=== PATIENT | female | born 1980 | race African-American/Black ===

== ENCOUNTER 2016-09-16 07:55 | Emergency (ER) | payer BC, OTHER ==
[~2016-09-16] VITALS: Ht 152.4 cm; Wt 54.4 kg
--- NOTE | ~2016-09-16 | EKG ---
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
[~2016-09-16 07:55] MED LIST: NOHOMEMEDICATIONS; NORCO 5-325 TA1 EACH PO; TOBREX5 ML OPHTHALMIC; VALIUM5 MG PO
[2016-09-16] MEDS ORDERED: AMOXICILLIN 50500 MG PO (08:25)
[2016-09-16 08:26] LABS: HEMATOCRIT 35.2 % (37.0-47.0); HEMOGLOBIN 11.6 gm/dL (12.0-15.0); MCH 25.8 pg (26.0-34.0); MCV 78.4 fL (80.0-100.0); PLATELET COUNT 419 thou/uL (150-400); RBC 4.49 mil/uL (4.20-5.00); RDW 14.9 % (10.5-14.5); WBC 8.9 thou/uL (4.0-11.0)
[2016-09-16 08:31] LABS: MANUAL DIFF YES
[2016-09-16 08:51] LABS: ABSOLUTE NEUTROPHILS 2.7 thou/uL (1.4-8.2); ATYPICAL LYMPHS 2 %; METAMYELOCYTES 1 %; TOTAL CELL COUNT 100
[2016-09-16 08:52] LABS: ANISOCYTOSIS 1+; HYPOCHROMASIA 1+
[2016-09-16 09:18] LABS: ANION GAP 14 mmol/L (7-16); BUN 13 mg/dL (7-18); CALCIUM 9.6 mg/dL (8.5-10.1); CHLORIDE 103 mmol/L (98-107); CO2 19 mmol/L (21-32); CREATININE 0.7 mg/dL (0.6-1.0); GLUCOSE 86 mg/dL (74-106); POTASSIUM 3.7 mmol/L (3.5-5.1); SODIUM 136 mmol/L (136-145); TROPONIN-I < 0.04 ng/mL (<0.04-0.07)
[2016-09-16] MEDS ORDERED: ATIVAN0.5 MG PO (09:23)
[2016-09-16 10:12] VITALS: BP 116/76
== END 2016-09-16 10:14 | disposition home or self-care (01) ==
LOC: ER 07:55
PROVIDERS: Emergency Medicine
DX: J06.9 Acute upper respiratory infection, unspecified (principal); L04.0 Acute lymphadenitis of face, head and neck; F10.99 Alcohol use, unspecified with unspecified alcohol-induced disorder; Z88.6 Allergy status to analgesic agent

== ENCOUNTER 2017-05-20 07:54 | Emergency (ER) | payer BC, OTHER ==
[~2017-05-20] VITALS: Ht 152.4 cm; Wt 81.7 kg
[~2017-05-20 07:54] MED LIST changes: +AMOXICILLIN 50500 MG PO; +ATIVAN0.5 MG PO
[2017-05-20 08:58] LABS: URINE BILIRUBIN NEGATIVE (Negative); URINE BLOOD NEGATIVE (Negative); URINE CLARITY CLOUDY; URINE COLOR YELLOW; URINE GLUCOSE-RANDOM* NEGATIVE (Negative); URINE KETONES NEGATIVE (Negative); URINE LEUKOCYTES-REFLEX NEGATIVE (Negative); URINE NITRITE-REFLEX NEGATIVE (Negative); URINE PROTEIN (DIPSTICK) NEGATIVE (Negative); URINE SPECIFIC GRAVITY 1.015 (1.005-1.035); URINE UROBILINOGEN 0.2 E.U./dl (0.2-1.0)
[2017-05-20] MEDS ORDERED: VALIUM5 MG PO (09:15)
[2017-05-20] MEDS ORDERED: MOBIC15 MG PO (09:15)
[2017-05-20] MEDS ORDERED: NORCO 5-325 TA1 EACH PO (09:15)
[2017-05-20 10:17] VITALS: BP 138/70
[2017-06-04] MEDS ORDERED: VALIUM5 MG PO (08:47)
[2017-06-04] MEDS ORDERED: NORCO 10-325 T1 EACH PO (08:48)
[2017-06-04] MEDS ORDERED: ATIVAN0.5 MG PO (08:49)
[2017-06-04] MEDS ORDERED: TYLENOL EXTRA500 MG PO (08:50)
[2017-06-04] MEDS ORDERED: IBUPROFEN 200200 M1 PO (08:51)
[2017-06-04] MEDS ORDERED: BC POWDER PO (08:56)
[2017-06-04] MEDS ORDERED: AMITRIPTYLINE H25 M2 PO (10:02)
[2017-06-20] MEDS ORDERED: OXYCODONE HCL10 MG PO (13:44)
[2017-06-20] MEDS ORDERED: MEDROLDOSEPACK PO (13:44)
[2017-06-20] MEDS ORDERED: AMITRIPTYLINE H25 M2 PO (13:45)
[2017-06-25] MEDS ORDERED: NAPROSYN500 MG PO (09:54)
[2017-06-25] MEDS ORDERED: NORCO 10-325 T1 EACH PO (10:58)
[2017-06-25] MEDS ORDERED: OXYCODONE HCL10 MG PO (10:58)
[2017-06-25] MEDS ORDERED: VALIUM5 MG PO (10:58)
[2017-07-30] MEDS ORDERED: NORCO 5-325 TA1 EACH PO (09:28)
[2017-07-30] MEDS ORDERED: NORCO 10-325 T1 EACH PO ×2 (10:17→10:18)
[2017-07-30] MEDS ORDERED: AMITRIPTYLINE H25 M2 PO (10:18)
[2017-07-30] MEDS ORDERED: VALIUM5 MG PO (10:20)
[2017-07-30] MEDS ORDERED: GRALISE300 MG PO (10:32)
[2017-07-30] MEDS ORDERED: GRALISE600 MG PO (10:32)
[2017-08-27] MEDS ORDERED: VALIUM5 MG PO (08:51)
[2017-08-27] MEDS ORDERED: AMITRIPTYLINE H25 M2 PO (08:51)
[2017-08-27] MEDS ORDERED: NORCO 10-325 T1 EACH PO (08:51)
== END 2017-05-20 10:25 | disposition home or self-care (01) ==
LOC: ER 07:54
PROVIDERS: Emergency Medicine
DX: M54.5 Low back pain (principal); Z88.8 Allergy status to other drugs, medicaments and biological substances; Z77.22 Contact with and (suspected) exposure to environmental tobacco smoke (acute) (chronic)

== ENCOUNTER 2017-05-28 11:02 | Emergency (ER) | payer BC, OTHER ==
[~2017-05-28] VITALS: Ht 152.4 cm; Wt 79.4 kg
[~2017-05-28 11:02] MED LIST changes: +MOBIC15 MG PO
[2017-05-28 12:13] VITALS: BP 109/69
[2017-06-04] MEDS ORDERED: VALIUM5 MG PO (08:47)
[2017-06-04] MEDS ORDERED: NORCO 10-325 T1 EACH PO (08:48)
[2017-06-04] MEDS ORDERED: ATIVAN0.5 MG PO (08:49)
[2017-06-04] MEDS ORDERED: TYLENOL EXTRA500 MG PO (08:50)
[2017-06-04] MEDS ORDERED: IBUPROFEN 200200 M1 PO (08:51)
[2017-06-04] MEDS ORDERED: BC POWDER PO (08:56)
[2017-06-04] MEDS ORDERED: AMITRIPTYLINE H25 M2 PO (10:02)
[2017-06-20] MEDS ORDERED: MEDROLDOSEPACK PO (13:44)
[2017-06-20] MEDS ORDERED: OXYCODONE HCL10 MG PO (13:44)
[2017-06-20] MEDS ORDERED: AMITRIPTYLINE H25 M2 PO (13:45)
[2017-06-25] MEDS ORDERED: NAPROSYN500 MG PO (09:54)
[2017-06-25] MEDS ORDERED: OXYCODONE HCL10 MG PO (10:58)
[2017-06-25] MEDS ORDERED: VALIUM5 MG PO (10:58)
[2017-06-25] MEDS ORDERED: NORCO 10-325 T1 EACH PO (10:58)
[2017-07-30] MEDS ORDERED: NORCO 5-325 TA1 EACH PO (09:28)
[2017-07-30] MEDS ORDERED: NORCO 10-325 T1 EACH PO ×2 (10:17→10:18)
[2017-07-30] MEDS ORDERED: AMITRIPTYLINE H25 M2 PO (10:18)
[2017-07-30] MEDS ORDERED: VALIUM5 MG PO (10:20)
[2017-07-30] MEDS ORDERED: GRALISE300 MG PO (10:32)
[2017-07-30] MEDS ORDERED: GRALISE600 MG PO (10:32)
[2017-08-27] MEDS ORDERED: AMITRIPTYLINE H25 M2 PO (08:51)
[2017-08-27] MEDS ORDERED: VALIUM5 MG PO (08:51)
[2017-08-27] MEDS ORDERED: NORCO 10-325 T1 EACH PO (08:51)
== END 2017-05-28 12:59 | disposition left against medical advice (07) ==
LOC: ER 11:02
DX: M54.42 Lumbago with sciatica, left side (principal); R20.2 Paresthesia of skin; F10.99 Alcohol use, unspecified with unspecified alcohol-induced disorder; Z77.22 Contact with and (suspected) exposure to environmental tobacco smoke (acute) (chronic); Z88.6 Allergy status to analgesic agent

== ENCOUNTER → 2017-06-04 | Outpatient (CLI) | payer BC, OTHER ==
[~2017-06-04] VITALS: Ht 152.4 cm; Wt 77.8 kg
[~2017-06-04] MED LIST changes: +AMITRIPTYLINE H25 M2 PO; +BC POWDER PO; +IBUPROFEN 200200 M1 PO; +NORCO 10-325 T1 EACH PO; +TYLENOL EXTRA500 MG PO
--- NOTE | ~2017-06-04 | HPC ---
[facility] [place] [address] PAIN MANAGEMENT CONSULTATION Name: JOHNATHAN ANTON Room #: [facility].#: [id number] Admission: 06/04/17 Attend Phys: Nati Bettencourt MD Discharge: Date of : 82 Report #: [id number] THIS REPORT FOR: //name// CC: Anand Bettencourt DATE OF SERVICE: 06/04/2017 PRIMARY CARE PHYSICIAN: Anand Parikh, registered nurse practitioner. CHIEF COMPLAINT: Back pain down into both legs. FOLLOWUP HISTORY: This is a 37-year-old female who has been referred to the pain clinic for evaluation of back and leg pain. She has been experiencing pain over the past months, which radiates down into both legs. She has been experiencing some numbness in the posterior portion of her legs and some in the anterior distal portion of her legs. She has experienced some subjective weakness at times. Feels like her legs are about the buckle and give out. She also feels some squeezing discomfort in the area of her cast. Feels that the right side is more problematic than the left. Rates her pain as a 5/10. Without her medication, she rates pain as a 10/10. Pain is somewhat improved by lying down as well as using a heating pad. Denies any trauma. Denies any significant bowel or bladder dysfunction. She did receive a Medrol Dosepak. She did note some mild improvement in her pain condition after taking the Medrol Dosepak. Overall, pain continues to be problematic and she describes them as constant, burning, aching, stabbing and throbbing pain, which is a 9/10 on today's date. She denies any surgeries in the past. 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 ALLERGIES: TRAMADOL. CURRENT MEDICATIONS: DC powder 2-3 daily, ibuprofen 200 mg every 6 hours p.r.n. pain, Tylenol Extra Strength 500 mg tablets every 6 hours p.r.n. pain, lorazepam 0.5 mg every 8 hours p.r.n., hydrocodone 10/325 one p.o. every 4-6 hours p.r.n. pain, diazepam 5 mg b.i.d. anxiety. PAST MEDICAL HISTORY: Low back pain, asthma, emotional problems. PAST SURGICAL HISTORY: None. REVIEW OF SYSTEMS: Questionnaire in the chart 14.3 indicates generally good health, weight changes, fatigue, weakness, wears glasses, nausea, vomiting, constipation, frequent recurring headaches, lightheadedness, dizziness, nervousness. LABORATORY DATA: MRI of the lumbar spine dated 05/28/2017 revealed #1 at the [address] [address] PAIN MANAGEMENT CONSULTATION Name: DESEANJOHNATHAN Elver Room #: [facility].#: [id number] Admission: 06/04/17 Attend Phys: Nati Bettencourt MD Discharge: Date of : 82 Report #: [id number] L4-L5 disk space there is a mild generalized disk bulge. Degenerative changes are seen involving the facet joints bilaterally. There is mild ligamentum flavum hypertrophy bilaterally. These findings when combined to result in mild central spinal canal stenosis. No neural foraminal stenosis is seen, #2 at the L5-S1 disk space there is moderate generalized disk bulge, superimposed on this disk bulge is a right paracentral focal disk protrusion. This measured 4 mm in AP diameter. Degenerative changes are seen involving the facet joints bilaterally. There is moderate ligamentum flavum hypertrophy. These findings when combined result in vgoi-mz-yrfeprmc right greater than the left central spinal canal stenosis. No neural foraminal stenosis is seen. The patient appears to have transitional vertebral anatomy. PAIN CLINIC ASSESSMENT: 1. The patient is not being treated for osteoarthritis or rheumatoid arthritis. 2. Height 5 feet 0 inches, weight 171 pounds, BMI is 33.5. 3. Vital signs: Blood pressure 129/71, pulse is 88, respiratory rate 16, room air saturation is 100. 4. Pain intensity 9. 5. Fall risk. The patient has not fallen in the last 3 months. 6. The patient is not on a blood thinner. 7. History of hypertension. The patient is not being treated for hypertension. 8. Opioid therapy. The patient is not on opioid therapy on a consistent basis. 9. Risk assessment tool. 10. Functional assessment tool 59-70 shows problems with activities of daily living. 11. Recreational drug use. Denies. 12. Tobacco. Current daily smoker, smoked for 20 years, one-third pack per day at this juncture. 13. Alcoholic beverages. Drinks only on special occasions. PHYSICAL EXAMINATION: GENERAL: The patient is a well-developed, well-nourished black female. She appears her stated age. ORIENTATION: The patient is alert and oriented x 3. AFFECT: The patient's affect is appropriate. HEAD, EYES, EARS, NOSE, AND THROAT: Normocephalic, atraumatic. Extraocular eye muscles intact. Mucous membranes are moist. Hearing within normal limits. NECK: Without JVD or adenopathy. CHEST: Clear to auscultation. HEART: Regular rate. ABDOMEN: Somewhat protuberant. EXTREMITIES: Upper extremities. Muscle strength is judged to be 5/5 in the major muscle groups of the upper extremity with symmetry. Sensory exam is within normal limits for the upper extremity. The patient's back/musculoskeletal indicates no significant kyphosis, scoliosis or lordosis. The patient does have some pain and discomfort in the area of the lower portion [facility] [address] [place] [address] PAIN MANAGEMENT CONSULTATION Name: JOHNATHAN ANTON Room #: [facility].#: [id number] Admission: 06/04/17 Attend Phys: Nati Bettencourt MD Discharge: Date of : 82 Report #: [id number] of her legs in the L5-S1 distribution on the back side as well as some pain and discomfort in the L4-L5 distribution in the anterior portion of her legs. IMPRESSION: Lumbar radiculopathy, L5-S1 distribution of the legs with MRI findings consistent with spinal stenosis, rated as pqtd-uo-puulimjy involving the L5-S1 dermatomal distribution. RECOMMENDATIONS: We discussed treatment options with the patient. Risks and benefits of an epidural steroid injection were again discussed. The patient's MRI was reviewed. Anatomical model was used to indicate the area of probable pathology. The possibility of improvement/pathophysiology of lumbar disk disease and spinal stenosis was discussed. The patient appears to understand. She will follow up in the future, at which time she will undergo an epidural steroid injection to help decrease the pain and discomfort which she is experiencing, which is radiating down into the posterior portion and anterior portion of her legs. Has numbness and tingling in both legs and in her feet as a result of this. She will return to the pain clinic after precertification by her insurance company at which time she will then undergo an epidural steroid injection to help decrease the pain and discomfort which she is experiencing. By: [id number] Nati Bettencourt MD /CECILIA
[2017-06-04 08:49] VITALS: BP 129/71
== END ==
LOC: PAIN 06:38
DX: M54.16 Radiculopathy, lumbar region (principal)

== ENCOUNTER → 2017-06-20 | Outpatient (CLI) | payer BC, OTHER ==
[~2017-06-20] VITALS: Ht 152.4 cm; Wt 77.6 kg
[~2017-06-20] MED LIST changes: +MEDROLDOSEPACK PO; +NAPROSYN500 MG PO; +OXYCODONE HCL10 MG PO
--- NOTE | ~2017-06-20 | HPC ---
[facility] [place] [address] [address] PAIN MANAGEMENT CONSULTATION Name: JOHNATHAN ANTON Room #: REG [facility].#: [id number] Admission: 06/20/17 Attend Phys: Nati Bettencourt MD Discharge: Date of : 82 Report #: [id number] THIS REPORT FOR: //name// CC: SHANE Osuna DATE OF SERVICE: 06/20/2017 PRIMARY CARE PHYSICIAN: Anand Parikh NP. CHIEF COMPLAINT: "I would like to get the injection." FOLLOWUP HISTORY: The patient is a 37-year-old female who has been seen in the pain clinic because of back and leg pain. She is experiencing pain and discomfort, which radiates down into the posterior portion of her right leg. She has had an MRI, which showed that she does have some pathology in the L4-L5/L5-S1 distribution. She noticed some numbness and tingling in her legs. She states that her leg continues to get significantly numb on the right side. Does have some problems with muscle strength. The leg has been weak. She has not fallen, but does require use of her hand at times to help push down on the pedals in her car because of the weakness associated with this. States that she has continued to do exercises to help strengthen this. Does continue to have pain and discomfort, which is still quite problematic. She is quite despondent. Feels that the pain continues to rule her life. She is unable to engage in things, which she would normally be able to, has difficulty getting her son off to school, has difficulty getting a ride and transportation as well as help from other family members given that she is having pain and discomfort and unable to fully care for herself and her son. ALLERGIES: TRAMADOL. MEDICATIONS: DC powders 2-3 per day, ibuprofen 200 mg 1 q. 6 hours p.r.n., Tylenol Extra Strength 500 mg q. 6 hours p.r.n., lorazepam 0.5 mg q.8 hours, hydrocodone 10/325 one p.o. q.4-6 h. p.r.n., diazepam 5 mg b.i.d. for anxiety. PAIN CLINIC ASSESSMENT: 1. The patient is not being treated for osteoarthritis nor rheumatoid arthritis. Height 5 feet 0 inches, weight 171 pounds, BMI is 33. 2. Vital signs: Blood pressure 127/79, pulse 96, respiratory rate 14, room air saturation 99%. Pain intensity is rated as a 7/10. 3. Fall risk. The patient has not fallen in the last 3 months. She has had some intermittent dizziness and feels like she is going to fall. Notes that her leg sometimes buckle and has almost fallen as a result of that. Notes some weakness in her leg and sometimes uses her arm and hands to help move [place] [address] PAIN MANAGEMENT CONSULTATION Name: JOHNATHAN ANTON Room #: REG [facility] Meenu#: [id number] Admission: 06/20/17 Attend Phys: Nati Bettencourt MD Discharge: Date of : 82 Report #: [id number] 4. The patient is not on a blood thinner. 5. History of hypertension. The patient has not been treated for hypertension. 6. Opioid therapy greater than 6 weeks. The patient is not on opioid therapy greater than 6 weeks. 7. Risk assessment tool. 8. Functional assessment tool. 9. Recreational drug use. 10. Tobacco. Every day smoker. Has smoked for the last 20 years. She does smoke about one-third pack of cigarettes per day. 11. Alcoholic beverages. The patient drinks only on special occasions. PHYSICAL EXAMINATION: GENERAL: The patient is a well-developed, well-nourished black female. She appears her stated age. She is oriented x 3. She is alert. Affect appears appropriate, but she is somewhat depressed. She cries during the interview secondary to the chronicity of her pain and limitation of her ability to engage in activities of daily living. HEENT: Normocephalic, atraumatic. Extraocular eye muscles intact. Mucous membranes are moist. Hearing is within normal limits. NECK: Without JVD or adenopathy. Good range of motion. CHEST: Clear to auscultation. HEART: Regular rate. ABDOMEN: Nontender, somewhat protuberant. EXTREMITIES: Upper extremities are judged to be 5/5 for the major muscle groups with symmetry. Sensation is within normal limits. MUSCULOSKELETAL: Without significant kyphosis, scoliosis or lordosis. The patient does have some pain and discomfort in the lower back area with pain radiating down into her legs with pain in the area of the L5-S1 distribution and some pain in the L5-S1 areas as well. MRI shows the patient has a transitional vertebral anatomy at L5/T. There are changes of degenerative disk disease involving the lower lumbar spine. These findings result in mild central canal stenosis at L4-L5 and npeh-gn-afigezpl right greater than left central spinal canal stenosis at L5/T. RECOMMENDATIONS: We discussed treatment options with the patient. The patient has returned to the pain clinic. Her insurance company has declined her injection at this juncture. They feel that she should undergo physical therapy. The patient is somewhat distraught that physical therapy was not already implemented. Feels that she is having pain and discomfort and suffering needlessly secondary to her insurance company's inability to areli her an injection at this juncture. I feel that she has taken all the medications that she can take to help with the pain. Continues to do stretching exercises. Finds that her leg continues to go numb. She has not fallen, but does note some weakness. Has to use her hand to help apply the brakes/accelerator while driving. The patient continues to have some numbness and tingling down into both legs and feet as a result of this. [facility] [address] [place] [address] PAIN MANAGEMENT CONSULTATION Name: JOHNATHAN ANTON Room #: REG [facility].#: [id number] Admission: 06/20/17 Attend Phys: Nati Bettencourt MD Discharge: Date of : 82 Report #: [id number] We have given the patient a script for physical therapy. Given that, she is having significant problems with pain, loss of muscle function and weakness in the affected area, we would recommend that she be granted an option to undergo an epidural steroid injection at this juncture. We will provide the patient with oxycodone for pain control. She will take 10 mg 1 p.o. t.i.d. as needed. She has been given a Medrol Dosepak to take in the interim. She did find that that was somewhat helpful for early in her course. We have given her samples of gabapentin (Gralise). She will take this as prescribed over the next 2 weeks, hopefully that in conjunction with amitriptyline, which has been helpful with sleep at night. We will continue to be efficacious and help the patient have a more controlled pain experience. So if her insurance company allows, we will proceed with a lumbar epidural steroid injection. We have called the insurance company and they will phone us hopefully in the near future and areli her the ability to undergo an epidural steroid injections after we talked with a [id number]-[id number] conference. <ELECTRONICALLY SIGNED> By: Nati Bettencourt MD 06/25/17 0851 1550 [id number] Nati Bettencourt MD /CECILIA
[2017-06-20 12:45] VITALS: BP 127/79
== END ==
LOC: PAIN 06:53
DX: M47.27 Other spondylosis with radiculopathy, lumbosacral region (principal); Z88.6 Allergy status to analgesic agent

== ENCOUNTER → 2017-06-25 | Outpatient (CLI) | payer BC, OTHER ==
[~2017-06-25] VITALS: Ht 152.4 cm; Wt 77.9 kg
--- NOTE | ~2017-06-25 | HPC ---
[facility] [address] [place] [address] PAIN MANAGEMENT CONSULTATION Name: JOHNATHAN ANTON Room #: REG [facility].#: [id number] Admission: 06/25/17 Attend Phys: Nati Bettencourt MD Discharge: Date of : 82 Report #: [id number] THIS REPORT FOR: //name// CC: SHANE Osuna DATE OF SERVICE: 06/25/2017 FOLLOWUP COMPLAINT: "Pain in the low back area with pain down into the back of my legs." FOLLOWUP HISTORY: The patient is a 37-year-old female, who has been seen in the pain clinic because of lumbar radiculopathy. As you recall, she has significant pain, which has been quite problematic. It radiates from her low back and into the posterior portion of her right leg. She has been experiencing numbness and tingling. She states that pain is problematic and there is numbness down in the leg, particularly on the right side. This in the posterior portion of the leg. She is unable to engage in activities of daily living. She is having difficulty at work. She is having difficulty sleeping. She rates the pain as a 7/10. Denies any real change in bowel or bladder habits. She is having difficulty driving. Notes some weakness in her leg, which makes it more difficult to control her vehicle. 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 ALLERGIES: TRAMADOL. MEDICATIONS: BC powders 2-3 per day, ibuprofen 200 mg 1 every 6 hours p.r.n., Tylenol Extra Strength 500 mg every 6 hours, lorazepam 0.5 mg every 8 hours, hydrocodone 10/325 one p.o. every 4-6 hours p.r.n., diazepam 5 mg 1 b.i.d. for anxiety. PAIN CLINIC ASSESSMENT: 1. The patient is not being treated for osteoarthritis or rheumatoid arthritis. 2. Her height 5 feet 0 inches, weight 171 pounds, BMI is 32. 3. VITAL SIGNS: Blood pressure 127/79, pulse 96, respiratory rate 16, room air saturation is 98%. Pain intensity rated as 7/10. 4. Fall risk. The patient has not fallen in the last 3 months. She does have some weakness in her leg. Notes that she sometimes has to push/lift the right leg secondary to pain and weakness. 5. The patient is not on a blood thinner. 6. History of hypertension. The patient has not been treated for hypertension. 7. Opioid therapy, greater than 6 weeks. The patient has not been treated for opioid therapy. 8. Risk assessment tool. 9. Functional assessment total. [address] [address] PAIN MANAGEMENT CONSULTATION Name: JOHNATHAN ANTON Room #: REG [facility] Meenu#: [id number] Admission: 06/25/17 Attend Phys: Nati Bettencourt MD Discharge: Date of : 82 Report #: [id number] 10. Recreational drug use: The patient denies use of recreational drugs. 11. Tobacco: The patient has smoked cigarettes and smokes daily for the last 20 years. Smokes about 1/3 of a pack of cigarettes per day. 12. Alcoholic beverages. Denies use of alcoholic beverages except on special occasions. PHYSICAL EXAMINATION: GENERAL: The patient is a well-developed, well-nourished black female. She appears her stated age. She is alert and oriented x 3. Her affect is appropriate. She is somewhat depressed. She is concerned about the chronicity of her pain. Speech is fluent. HEENT: Normocephalic, atraumatic. Extraocular eye muscles intact. Sclerae is nonicteric. Mucous membranes are moist. Hearing is within normal limits. NECK: Good movement without JVD or adenopathy. CHEST: Clear to auscultation. HEART: Regular rate, normal S1, S2. ABDOMEN: Nontender, somewhat protuberant. EXTREMITIES: Upper extremity is judged to be 5/5 for the major muscle groups with symmetry and without sensory changes. MUSCULOSKELETAL: Without significant kyphosis, scoliosis or lordosis. The patient has some pain and discomfort in the lower portion of her back with pain radiating down into both legs in the L5-S1 distribution, more prominent on the right side today. The patient has a transitional vertebral anatomy at L5/T. MRI shows transitional vertebral anatomy at L5/T. There are changes of degenerative disk disease involving the lower lumbar spine. These findings result in mild central canal stenosis at L4-L5 and nvfq-oq-zdzouzmx right greater than left central spinal canal stenosis at L5/T. RECOMMENDATIONS: We discussed treatment options with the patient. Risks and benefits of an epidural steroid injection were again reviewed. Possible complications were discussed. They could include but are not limited to infection, increased muscle soreness, headache, bleeding, worsening of pain, nerve damage. The patient has returned today and would like to proceed with the epidural steroid injection to help control her pain and decrease her suffering. PROCEDURE NOTE: The patient was taken to the procedure area. She was assisted in getting on the fluoroscopy table. Her back was sterilely prepped with a Betadine solution. A 0.25% bupivacaine was infiltrated to this area. The area had been identified using fluoroscopy using anterior-posterior as well as lateral approach. A 0.25% bupivacaine was infiltrated. A 17-gauge Tuohy with loss of resistance technique was then advanced into the epidural space. There was no CSF, heme or paresthesia. Total of 80 mg Depo-Medrol, 40 mg triamcinolone and 2 mL of 0.25% bupivacaine was injected. The patient tolerated the procedure well. There were no complications. A Band-Aid was placed. There [facility] [address] [place] [address] PAIN MANAGEMENT CONSULTATION Name: JOHNATHAN ANTON Room #: REG [facility]#: [id number] Admission: 06/25/17 Attend Phys: Nati Bettencourt MD Discharge: Date of : 82 Report #: [id number] was no bleeding. She was then assisted to the recovery room area. She remained there for an appropriate amount of time. She will follow up in the future as needed. We would like to thank you for letting us participate in her care. We hope she continues to improve. Pain decreased from ____. Total of 14 seconds fluoroscopy time was used. By: [id number] Nati Bettencourt MD /nt
[2017-06-25 09:54] VITALS: BP 126/74
== END | disposition home or self-care (01) ==
LOC: PAIN 06:48
DX: M54.16 Radiculopathy, lumbar region (principal); G89.29 Other chronic pain; F17.210 Nicotine dependence, cigarettes, uncomplicated; Z79.891 Long term (current) use of opiate analgesic; Z88.8 Allergy status to other drugs, medicaments and biological substances

== ENCOUNTER → 2017-08-27 | Outpatient (CLI) | payer BC, OTHER ==
[~2017-08-27] VITALS: Ht 152.4 cm; Wt 77.9 kg
[~2017-08-27] MED LIST changes: +GRALISE300 MG PO; +GRALISE600 MG PO
--- NOTE | ~2017-08-27 | HPC ---
[facility] [place] [address] PAIN MANAGEMENT CONSULTATION Name: JOHNATHAN ANTON [id number] Admission: 08/27/17 Attend Phys: Nati Bettencourt MD Discharge: Date of : 82 Report #: [id number] THIS REPORT FOR: //name// CC: Anand Bettencourt DATE OF SERVICE: 08/27/2017 FOLLOWUP COMPLAINT: "I have had EMG testing. I have nerve damage in my legs. I have lost some sensation in my bladder." FOLLOWUP HISTORY: The patient is a 37-year-old female, who has been followed in the pain clinic, because of lumbar radiculopathy. She has undergone epidural steroid injection in the past and gleaned benefits from that. She continues to have pain and discomfort, which is quite problematic. She continues to go to work. She works 4 days per week. She finds work quite problematic. She has been sent home on a couple of occasions secondary to the employer noting that she is in such pain and discomfort. The patient states that she has lost some bladder continence, because of some decreasing feelings sensation in her bladder. Continues to have pain and discomfort, which radiates down into her leg. Has the sensation of a thong in between her great toe and the index toe. Notes cramping in her calf. Notes pain radiating down from the buttocks down into the posterior portion of her thigh. Has had this in the L5-S1 distribution. She has had numbness in the right foot and tingling in her left foot. Notes that pain is exacerbated with standing, walking too long, sitting for a prolonged period of time. Notes that sometimes the pain improves when she lies flat on the bed. The patient states that she is trying to contact her surgeon. The patient states that she has been doing exercises, which she is seen on the Internet regarding her back and pain. She has not been able to go to physical therapy. States that her insurance declined that option for her. The patient feels that the pain continues to rule her life. Unable to engage in activities of daily living secondary to this pain and discomfort. Still has difficulty interacting with her son. Has been having difficulty maintaining her livelihood secondary to this pain and discomfort. Feels somewhat depressed because of this situation. ALLERGIES: TRAMADOL. CURRENT MEDICATIONS: 1. DC powders 2-3 per day. 2. Ibuprofen 200 mg 1 every 4-6 hours p.r.n. pain. 3. Extra strength Tylenol 500 mg p.r.n. 4. Lorazepam 0.5 mg every 8 [place] [address] PAIN MANAGEMENT CONSULTATION Name: JOHNATHAN ANTON Room #: REG [facility].#: [id number] Admission: 08/27/17 Attend Phys: Nati Bettencourt MD Discharge: Date of : 81 Report #: [id number] 5. Hydrocodone 10/325 one p.o. every 4-6 hours p.r.n. 6. Diazepam 5 mg b.i.d. for anxiety and muscle spasms. PAIN CLINIC ASSESSMENT: 1. The patient does have some osteoarthritic changes in the low back area causing pain and discomfort in the L5-S1 distribution. 2. Height 5 feet 0 inches, weight 171 pounds, BMI is 36.6. 3. Vital Signs: Blood pressure 110/72, pulse 98, respiratory rate 16, room air saturation 100. 4. Pain intensity 10/10. 5. Fall risk. The patient has not fallen in the last 3 months, but does note some weakening in her legs secondary to pain and discomfort. 6. Blood thinner. The patient is not on a blood thinning medication. 7. Hypertension. The patient is not being treated for hypertension. 8. Opioid therapy greater than 6 weeks. The patient is receiving opioid medications through the pain clinic. 9. Risk assessment tool, opioid risk low. 10. Functional assessment 59 on a 70 shows a significant impact on activities of daily living secondary to the pain. 11. Recreational drug use. The patient denies use of recreational drugs. 12. Current smoker. 13. Alcohol: The patient denies use of alcoholic beverages. PHYSICAL EXAMINATION: GENERAL: The patient is a well-developed black female. She is alert and oriented x 3. She is appropriate. Her affect is somewhat depressed. She states that her pain is problematic and overshadowing her entire life. HEENT: Normocephalic, atraumatic. Extraocular eye muscles intact. Mucous membranes are moist. Sclerae nonicteric. Hearing is within normal limits. NECK: Without JVD or adenopathy. Good range of motion. CHEST: Clear to auscultation without rales or rhonchi. HEART: Regular rate. S1, S2. ABDOMEN: Nontender, somewhat protuberant. EXTREMITIES: Upper extremities judged to be 5/5 for the major muscle groups with symmetry and normal sensation without change. MUSCULOSKELETAL: Without significant kyphosis, scoliosis or lordosis. Lower extremity, the patient has pain and discomfort in the lower portion of her back with pain radiating down in the L5-S1 distribution of her back. Notes bilateral leg pain in the thighs and feet. Notes some entirety of her left calf feeling like it have a charley horse. Right foot with numbness, left foot with tingling, great toe and the index toe on the right foot feels as though, the patient is wearing a thong because of the pressure and discomfort in this area, numbness, tingling, tightness, spasms has noted and had an accident where she could not feel her bladder. IMPRESSION: [facility] [address] [place] [address] PAIN MANAGEMENT CONSULTATION Name: DESEANJOHNATHAN Elver Room #: REG [facility].#: [id number] Admission: 08/27/17 Attend Phys: Nati Bettencourt MD Discharge: Date of : 81 Report #: [id number] 1. Lumbar radiculopathy, L5-S1 distribution. 2. Some loss of bladder sensation with micturition. RECOMMENDATIONS: We discussed treatment options with the patient. Risks and benefits of an epidural steroid injection were again discussed. The patient states that she has had EMG findings. States that the EMG findings noted that there was some damage in her left as well as in the right nerves radiating down into her L5-S1 area. The patient states that her surgeon, Dr. Sethi, who is contemplating surgery has asked that she consider another epidural steroid injection prior to the surgery. She would like to proceed. We have a call in to her insurance company. They have requested a [id number]. We would certainly like to proceed with this procedure. The patient continues to do stretching exercises at home. Continues to use nonsteroidal anti-inflammatory medication such as Naprosyn, meloxicam and DC powders. The patient has an MRI, has noted some improvement in the pain after the epidural steroid injection. The pain is more intermittent instead of constant and steady which precluded her from going to work. We would like to thank you for letting us participate in her care. We hope she continues to improve. The patient has been given a script for Elavil 25 mg at bedtime, Neurontin 10 mg 1 p.o. every 4-6 hours p.r.n. as well as Valium for muscle spasms. We would like to thank you for letting us participate in her care. We hope she continues to improve. <ELECTRONICALLY SIGNED> By: Nati Bettencourt MD 08/29/17 0833 1621 Nati Bettencourt MD /nt
[2017-08-27 08:56] VITALS: BP 110/72
== END ==
LOC: PAIN 07:08
DX: M54.16 Radiculopathy, lumbar region (principal); R30.9 Painful micturition, unspecified

== ENCOUNTER → 2018-05-27 | Outpatient (CLI) | payer BC ==
[~2018-05-27] VITALS: Ht 152.4 cm; Wt 80.0 kg
[~2018-05-27] MED LIST changes: +EXCEDRIN CAPLE1 EACH PO; +NEURONTIN 300M300 M2 PO
--- NOTE | ~2018-05-27 | HPC ---
[facility] [address] [address] PAIN MANAGEMENT CONSULTATION Name: JOHNATHAN ANTON [id number] Admission: 05/27/18 ������������������ Attend Phys: Nati Bettencourt MD Discharge: ������������������ Date of : 81 Report #: [id number] THIS REPORT FOR: //name// CC: Anand Bettencourt DATE OF SERVICE: 05/27/2018 COMPLAINT: Low back pain with pain radiating down to the left foot with throbbing and some weakness. HISTORY: The patient is a 38-year-old female who has been followed in the pain clinic. She had been experiencing pain with radiation down into her legs. She also began to experience bowel and bladder dysfunction. She by her neurosurgeon. We felt that the patient's bowel and bladder incontinence was secondary to pressure on the nerves in the lower portion of her back. She underwent back surgery. She has noted an improvement since that surgery. She has noted return of bowel and bladder function. Has less pain and discomfort on the right side. Continues to have pain, which radiates down into the left knee area and down into her calf and foot. Imaging did not show signs of blood clot. Overall, things have improved since her spine surgery. She continues to have some pain and discomfort. She continues to recuperate. Notes that the pain in her left lower extremity comes in waves. After prolonged standing with activity such as cleaning as cooking and other activities. She notes increased pain in her left leg. She has fallen on 2 occasions. Fell twice on the ice. Fell one time when her left leg buckled when she was walking down stairs some steps. Left leg oftentimes feels as though it is "sleep." ALLERGIES: TRAMADOL. CURRENT MEDICATIONS: Excedrin q. 6 hours p.r.n., Valium 5 mg b.i.d. p.r.n. anxiety, hydrocodone 5/325 one p.o. q.4-6 hours p.r.n. pain and Naprosyn 500 mg b.i.d., Tylenol Extra Strength 500 mg p.r.n. PAIN CLINIC ASSESSMENT/PQRS: 1. The patient does have some osteoarthritic changes in the lower portion of her back and is status post surgery. The patient is not being treated for rheumatoid arthritis. 2. Height 5 feet 0 inches, weight 176 pounds, BMI is 34. 3. Vital Signs: Blood pressure 133/85, pulse 92, respiratory rate 18, room air saturations 100%. Pain intensity 7/10. 3. Fall risk. The patient did fallen secondary to some weakness in her left lower extremity also fell two times on ice. 4. Blood thinner. The patient is not on a blood thinning medication. 5. Hypertension. The patient has not been treated for hypertension. [address] [address] PAIN MANAGEMENT CONSULTATION Name: JOHNATHAN ANTON Room #: REG [facility]#: [id number] Admission: 05/27/18 ������������������ Attend Phys: Nati Bettencourt MD Discharge: ������������������ Date of : 81 Report #: [id number] 6. Opioid medications greater than 6 weeks. The patient has received some medications from her orthopedic surgery, Dr. Sethi. 6. Functional assessment tool 59/70. 7. Recreational drug use. The patient denies use of recreational drugs. 8. Alcohol: The patient denies frequent use of alcoholic beverages. 9. Tobacco. The patient has smoked tobacco in the past, 1 pack a day every 3-4 days, over the past 20 years. PHYSICAL EXAMINATION: GENERAL: The patient is a well-developed, well-nourished black female, appears her stated age. She is alert and oriented x 3. Her affect is appropriate. Speech is fluent. HEENT: Normocephalic, atraumatic. Extraocular eye muscles intact. NECK: Without JVD or adenopathy. Good range of motion. CHEST: Clear to auscultation without rhonchi or rales. HEART: Regular rate. S1, S2. ABDOMEN: Nontender. Bowel sounds present. EXTREMITIES: Upper extremity muscle strength is judged to be 5/5 for the major muscle groups with symmetry without sensory changes. MUSCULOSKELETAL: Without significant kyphosis, scoliosis or lordosis. The patient has pain and discomfort in lower portion of her back with pain that is radiating down into the left leg, most problematic below the level of her knee. Notes some weakness in this area. Has some discomfort primarily on the left lower extremity. Notes some throbbing. Notes increased pain with prolonged standing. She feels as though the left leg has fallen asleep. IMPRESSION: 1. History of lumbar radiculopathy, L5-S1, status post surgery with improvement on the right side and improvement in bowel and bladder function. 2. L5-S1 minimally invasive microdiskectomy performed on 08/08/2017. RECOMMENDATIONS: We discussed treatment options with the patient. Continues to have pain and discomfort, which is problematic, found that Elavil was helpful. use of amitriptyline 25-50 mg 1 p.o. at bedtime. Oftentimes, this medication can be helpful, but when patient is having pain, which is associated with the nerves. Also, could be helpful with patients and improving their sleep pattern. The patient will continue with [place] 5 mg 1 p.o. b.i.d. The patient has been given a script for 5 tablets daily. I think it is important that the patient have use of this medication at this juncture. She feels that it increased her ability to engage in activities of daily living. This is a small amount of medication. She has used higher dosages in the past. I think the lower dose at this juncture will prove beneficial. We have discussed the possible complications of opioid use, which includes the possibility of addiction as well as less efficacy secondary to tolerance. The patient also will continue with Valium 5 mg p.o. b.i.d. She takes this medication help with anxiety as well as with muscle spasms. She will continue with gabapentin [address] [address] PAIN MANAGEMENT CONSULTATION Name: JOHNATHAN ANTON Room #: REG [facility].#: [id number] Admission: 05/27/18 ������������������ Attend Phys: Nati Bettencourt MD Discharge: ������������������ Date of : 81 Report #: [id number] p.o. t.i.d. The patient will use Meloxicam 15 mg 1 p.o. daily. She will monitor her GI. If she notes problems with gastric irritation she will stop taking the Meloxicam. A script for the medications have been rewritten. The patient's insurance has declined use of hydrocodone. I think at this juncture from a medical standpoint, this is a reasonable medication for the patient to be taken at this juncture. We would like to thank you for letting us participate in her care. We hope she continues to improve. ��������������������������������������������� ���������������������������������������� By: ��������������������������������������������� [id number] Nati Bettencourt MD /PMT
[2018-05-27 09:22] VITALS: BP 133/85
--- NOTE | 2018-05-27 09:26 | NUR ---
Pain Clinic Assessment: 1. History of Osteoarthritis: History of Rheumatoid Arthritis: 2. Height: 5 ft. 0 in. 152.4 cm. Weight: 176.4 lb. oz. 80.015 kg. Patient's BMI: 34.5 3. Vital Signs: BP: 133/85 Pulse: 92 Resp: 18 Temp: 02 Sat: 100 ECG Mon: 4. Pain Intensity: 7 5. Fall Risk: Dizziness: N Needs help standing or walking: N Fallen in the last 3 months: Y Fall risk comments: 6. Patient on Blood Thinner: None 7. History of Hypertension: N 8. Opioid Therapy greater than 6 weeks: N Opiate Contract Signed: 9. Risk Assessment Tool Provided: Opioid Risk Tool 10. Functional Assessment Tool: 59/70 11. Recreational Drug Use: Never Drug Type: Tobacco Use: Current Every Day Smoker Tobacco Type: Amount or Packs/day: How Many Years: Alcohol Use: No Frequency: Quant:
== END ==
LOC: PAIN 07:04
DX: M54.16 Radiculopathy, lumbar region (principal); M51.06 Intervertebral disc disorders with myelopathy, lumbar region; Z79.899 Other long term (current) drug therapy

== ENCOUNTER → 2018-06-26 | Outpatient (CLI) | payer BC ==
[~2018-06-26] VITALS: Ht 152.4 cm; Wt 82.6 kg
[~2018-06-26] MED LIST changes: +AMITRIPTYLINE H50 M2 PO; +HYDROCODON-ACE1 EAC7 PO; +NEURONTIN 300300 M1 PO
[2018-06-26 09:12] VITALS: BP 121/84
--- NOTE | 2018-06-26 09:28 | NUR ---
Pain Clinic Assessment: 1. History of Osteoarthritis: Not Applicable History of Rheumatoid Arthritis: Not Applicable 2. Height: 5 ft. 0 in. 152.4 cm. Weight: 182.0 lb. oz. 82.555 kg. Patient's BMI: 35.5 3. Vital Signs: BP: 121/84 Pulse: 93 Resp: 14 Temp: 02 Sat: 100 ECG Mon: 4. Pain Intensity: 6 5. Fall Risk: Dizziness: N Needs help standing or walking: N Fallen in the last 3 months: N Fall risk comments: 6. Patient on Blood Thinner: None 7. History of Hypertension: N 8. Opioid Therapy greater than 6 weeks: N Opiate Contract Signed: 9. Risk Assessment Tool Provided: Opioid Risk Tool 10. Functional Assessment Tool: 59/70 11. Recreational Drug Use: Never Drug Type: Tobacco Use: Current Every Day Smoker Tobacco Type: Cigarettes Amount or Packs/day: 5-6 CIGS DAY How Many Years: Alcohol Use: No Frequency: Quant:
--- NOTE | 2018-06-29 07:22 | HPC ---
[facility] [address] [address] PAIN MANAGEMENT CONSULTATION Name: JOHNATHAN ANTON [facility] [id number] Admission: 06/26/18 ������������������ Attend Phys: Macrina Wong Discharge: ������������������ Date of : 82 Report #: [id number] THIS REPORT FOR: //name// CC: Macrina Wong Anand Kati DATE OF SERVICE: 06/26/2018 CHIEF COMPLAINT: Low back pain with pain radiating down her left leg to her left foot. HISTORY OF PRESENT ILLNESS: This is a very pleasant 38-year-old who returns to the pain clinic today, very thankful for the medication regimen that she is on by Dr. Bettencourt. She tells me that her pain is slowly getting better. She does not concentrate on her pain all the time. She is enjoying her work again and able to cook meals. She is just very thankful that she found Dr. Bettencourt in this pain clinic. It has been 8 months since her surgery and she knows it still is going to take time to recover, but she is very thankful. Her left leg still bothers her at times, but she does not consume all of her thoughts as it once did. She tells me she cooked a full meal for her 7-year-old the other day. She said it brought tears to her eyes that she was able to do that. She would like refills of her current medications. She states she is sleeping well and her pain score today is a 6/10, worse when she is walking or standing too long, better when she is lying down and using heat. She denies any constipation. She takes some syou-rho-fccxjch stool softeners and that helps regulated. She is not overmedicated and denies daytime sleepiness. ALLERGIES: TRAMADOL. CURRENT MEDICATIONS: Hydrocodone 5/325 two tablets b.i.d. p.r.n., diazepam 5 mg b.i.d. for spasms, amitriptyline 50 mg at bedtime, gabapentin 300 mg 3 times a day and meloxicam 15 mg daily. PQRS: 1. She has some arthritic changes in the lower back. She is not being treated for rheumatoid arthritis. 2. Height is 5 feet, weight is 182 and BMI is 35. 3. VITAL SIGNS: Blood pressure 121/84, pulse is 93, respirations 14 and oxygen sat is 100. 4. Pain score 6/10. 5. Fall risk. Denies dizziness. Does not help walking or standing, has not fallen in the last 3 months. 6. Blood thinner. She denies. She does not have a history of hypertension. 7. Opiate therapy is greater than 6 weeks[address] We need to place a drug screen on her chart for her to sign. 8. Recreational drug use, she denies. She currently smokes 5-[address] [address] PAIN MANAGEMENT CONSULTATION Name: JOHNATHAN ANTON [id number] Admission: 06/26/18 ������������������ Attend Phys: Macrina Wong Discharge: ������������������ Date of : 82 Report #: [id number] day. She does not drink alcohol. Her functional assessment is 59/70 and her opioid risk tool is low. We did check the prescription monitoring system. The patient is filling appropriately from her medications from Dr. Bettencourt. She is due for her medications today. We will check a drug screen on her at her next visit. PHYSICAL EXAMINATION: GENERAL: This is a well-developed, well-nourished black female who appears her stated age, placing her current pain score at 6 today. She is alert and orientated and her affect is appropriate. HEENT: Normocephalic and atraumatic. Extraocular eye muscles are intact. NECK: Without JVD or adenopathy. EXTREMITIES: Upper extremity strength judged to be 5/5 for major muscle groups and symmetry without sensory changes. MUSCULOSKELETAL: Without significant kyphosis, scoliosis or lordosis. She does walk with a slightly antalgic gait. Complains of pain in her left thigh area that does occasionally radiate below the knee. Her lower extremity strength judged to be 4/5 in her left leg, 5/5 in her right leg. She does note some throbbing and numbness in her leg. IMPRESSION: 1. History of lumbar radiculopathy, L5-S1, status post surgery. 2. L5-S1 minimally invasive microdiscectomy. We reviewed the fact that opiate medications are being used to provide analgesia adequate to support activities of daily living, not attempting to achieve a specific pain score on the 0-10 Visual Analog Scale. The current opiate medications are providing sufficient analgesia to allow the patient to participate in activities of daily living. The patient is not exhibiting any aberrant behavior suggestive of drug diversion. The patient is not having any adverse reactions to medications. The patient is not suffering from daytime somnolence or mental acuity changes. The patient is managing opiate-induced constipation with appropriate rxoo-pic-lvfdevt agents and dietary considerations. The patient was counseled on concern for caution with operating a motor vehicle while using opiate medications. A physical exam was performed and the patient's functional status was evaluated. All patients with back pain were advised against the bed rest greater than 4 days and were advised to return to normal activities. Pain score assessment was noted and the treatment plan was reviewed with the patient. All current medications, both prescribed and OTC were reviewed and reconciled on the electronic medical record. Tobacco screening was accomplished and smoking cessation was advised when indicated. BMI was noted and diet/exercise modification was recommended for all patients following outside normal parameters. [facility] [address] [place] [address] PAIN MANAGEMENT CONSULTATION Name: JOHNATHAN ANTON Room #: REG [facility] Ana.#: [id number] Admission: 06/26/18 ������������������ Attend Phys: Macrina Wong Discharge: ������������������ Date of : 82 Report #: [id number] I reviewed with the patient today their responsibilities to safeguard prescription medications, reviewed their responsibility to utilize medications only as prescribed by the physician. They are to seek and receive pain medications only from 1 physician group ( [facility]). They are to use 1 pharmacy and keep the clinic informed if they change pharmacies. Their responsibilities include making followup visits in a timely fashion and to avoid abrupt discontinuation of medication usage. Their responsibilities further include bringing their medications (bottles from the pharmacy with residual pills) to the visit for possible confirmation of pill counts and the patient understands it is their responsibility to submit to random drug screens to ensure both that the medications prescribed are present, and that no other controlled substances are present. All prescriptions provided today were generated electronically. PLAN: 1. We discussed treatment options with the patient today. The patient tells me she is doing well on her current regimen from Dr. Bettencourt and would like refills of her medications. 2. Script was given today for [place] 5 mg 2 tablets b.i.d., #60 for today and 4-week release. This places her morphine milliequivalent at maximum of 20 morphine milliequivalents per day. Some days, she is not needing the full amount of her medications. Second medication is diazepam 5 mg b.i.d. #60 with one additional refill. Next medicine, gabapentin 300 mg t.i.d., #90 with one additional refill. Final medicine, amitriptyline 50 mg tablets 1 at bedtime, #30 with one additional refill. This is a change from her 25 mg, she was titrating up on that medication and find that 50 mg is very helpful for her that she uses for sleep and she tells me that her sleep has improved significantly, which she thinks helps aid her in her activities of daily living and makes her more productive at home. 3. The patient will be seen in 2 months' time. The patient was seen with Dr. Bettencourt who also collaborated care. ��������������������������������������������� <ELECTRONICALLY SIGNED> ���������������������������������������� By: Macrina oWng ��������������������������������������������� 06/29/18 0722 [id number] Macrina Wong /kenzie
== END ==
LOC: PAIN 06:44
DX: M54.17 Radiculopathy, lumbosacral region (principal); Z98.1 Arthrodesis status; Z79.899 Other long term (current) drug therapy

== ENCOUNTER → 2018-08-21 | Outpatient (CLI) | payer BC ==
[~2018-08-21] VITALS: Ht 152.4 cm; Wt 84.4 kg
[~2018-08-21] MED LIST changes: +AMITRIPTYLINE H75 M1 PO
--- NOTE | ~2018-08-21 | HPC ---
[facility] [place] [address] PAIN MANAGEMENT CONSULTATION Name: JOHNATHAN ANTON Room #: REG [facility] Ana.#: [id number] Admission: 08/21/18 ������������������ Attend Phys: Nati Bettencourt MD Discharge: ������������������ Date of : 82 Report #: [id number] THIS REPORT FOR: //name// CC: Anand Bettencourt DATE OF SERVICE: 08/21/2018 CHIEF COMPLAINT: Chronic pain in the left calf. HISTORY: The patient is a 38-year-old female who has been seen in the pain clinic because of chronic pain. She has returned today because of continued pain and discomfort. It involves her left lower calf. Notes that she has some cramping sensation. She has used the Valium and finds that that is one of the medications that she says been helpful with the cramping sensation. She has tried a number of other muscle relaxants and has not got the same benefit. She would like to "get on top of the pain", but she has not been able to. It is still quite problematic. She rates it as a 9/10. The numbness, tingling and spasms are quite problematic. Standing for too long, walking for too long or prolonged sitting can exacerbate her discomfort. She has found that lying down using heat as well as a hot baths can sometimes decrease the pain. She has returned to the pain clinic for evaluation of her pain and treatment. ALLERGIES: TRAMADOL. CURRENT MEDICATIONS: Hydrocodone 5/325 one p.o. b.i.d., diazepam 5 mg b.i.d. for spasms, amitriptyline 50 mg at bedtime, gabapentin 300 mg t.i.d. and meloxicam 15 mg daily. ASSESSMENT/PQRS: 1. The patient has some arthritic change in the lower portion of her back. She is not being treated for rheumatoid arthritis. 2. Height 5 feet 0 inches, weight 186 pounds, BMI is 36.3. 3. VITAL SIGNS: Blood pressure 145/96, pulse 102, respiratory rate 16, room air saturation 98%. 4. Pain intensity 11/24. 5. Fall history: The patient has not fallen in the last 3 months. 6. Blood thinner. The patient is not on a blood thinning medication. 7. Hypertension. The patient is not being treated for hypertension. 8. Opioids greater than 6 weeks. The patient is receiving medications from one source, the pain clinic. 9. Risk assessment tool, low for opioid risk. 10. Functional assessment tool 59/70. 11. Recreational drug use. The patient denied. 12. Tobacco: The patient does smoke cigarettes. She is down to 6 cigarettes. Has smoked for 20 years and is in process of trying to quit. [address] [address] PAIN MANAGEMENT CONSULTATION Name: DESEANJOHNATHAN Elver [facility] [id number] Admission: 08/21/18 ������������������ Attend Phys: Nati Bettencourt MD Discharge: ������������������ Date of : 82 Report #: [id number] 13. Alcohol: The patient denies frequent use of alcoholic beverages. PHYSICAL EXAMINATION: GENERAL: The patient is well-developed, well-nourished black female, appears her stated age. She is alert and oriented x 3. Her affect is appropriate. Speech is fluent. HEENT: Normocephalic, atraumatic. Extraocular eye muscles intact. Sclerae nonicteric. Mucous membranes are moist. NECK: Without adenopathy or JVD. HEART: Regular rate. S1, S2. LUNGS: Clear to auscultation. ABDOMEN: Nontender. Bowel sounds present. EXTREMITIES: Upper extremity muscle strength is judged to be 5/5 for the major muscle groups in the upper extremity. The patient has a well-healed scar in the mid portion of her low back area. MUSCULOSKELETAL: The patient has pain and discomfort that is radiating down into her leg. The L5-S1 area near the calf is the most problematic area. Soft pressure and squeezing in this area does cause the patient pull back and complained of pain and discomfort. States that she has been seen by Dr. Estefania Sethi. She was evaluated for the possibility of a blood clot behind her knee that was negative. The patient has been referred to the pain clinic for continued pain followup. IMPRESSION: 1. History of lumbar radiculopathy status post surgery at L5-S1. 2. L5-S1 minimally invasive microdiskectomy was performed. 3. Chronic pain in spite of surgery. RECOMMENDATIONS: 1. We discussed treatment options with the patient. At this juncture, I think we will continue with her medications. She finds that the Valium medication is helpful with the muscle spasms. She has tried other medications in the past with no significant improvement. I think also a trial of a Medrol Dosepak at this juncture would be beneficial. A script for this has been written. The patient will also continue with the gabapentin 300 mg 1 p.o. t.i.d. She will continue with her meloxicam 15 mg daily. The patient also will have the Elavil increased from 50 mg at night to 75. She is having no problems with sedation. 2. We will also increase the Valium from 5 mg b.i.d. to 5 mg t.i.d. The patient will also continue with Kerrick 5/325 one p.o. t.i.d. Hopefully, the patient will move past this stumbling block and continued to improve. We would like to thank you for letting us participate in her care. We hope she continues to improve. ��������������������������������������������� ���������������������������������������� By: ��������������������������������������������� [id number] Nati Bettencourt MD /nt
[2018-08-21 09:51] VITALS: BP 145/96
--- NOTE | 2018-08-21 09:52 | NUR ---
Pain Clinic Assessment: 1. History of Osteoarthritis: Not Applicable History of Rheumatoid Arthritis: Not Applicable 2. Height: 5 ft. 0 in. 152.4 cm. Weight: 186.0 lb. oz. 84.369 kg. Patient's BMI: 36.3 3. Vital Signs: BP: 145/96 Pulse: 102 Resp: 16 Temp: 02 Sat: 98 ECG Mon: 4. Pain Intensity: 9 5. Fall Risk: Dizziness: N Needs help standing or walking: N Fallen in the last 3 months: N Fall risk comments: 6. Patient on Blood Thinner: None 7. History of Hypertension: N 8. Opioid Therapy greater than 6 weeks: Y Opiate Contract Signed: 08/21/18 9. Risk Assessment Tool Provided: Opioid Risk Tool 10. Functional Assessment Tool: 59/70 11. Recreational Drug Use: Never Drug Type: Tobacco Use: Current Every Day Smoker Tobacco Type: Cigarettes Amount or Packs/day: 4 CIGS How Many Years: 20 Alcohol Use: No Frequency: Quant:
== END ==
LOC: PAIN 06:47
DX: M54.17 Radiculopathy, lumbosacral region (principal); G89.29 Other chronic pain; F17.210 Nicotine dependence, cigarettes, uncomplicated; Z79.899 Other long term (current) drug therapy; Z79.891 Long term (current) use of opiate analgesic

== ENCOUNTER → 2018-10-21 | Outpatient (CLI) | payer BC ==
[~2018-10-21] VITALS: Ht 152.4 cm; Wt 83.5 kg
[2018-10-21 09:56] VITALS: BP 111/73
--- NOTE | 2018-10-21 10:12 | NUR ---
Pain Clinic Assessment: 1. History of Osteoarthritis: Not Applicable History of Rheumatoid Arthritis: Not Applicable 2. Height: 5 ft. 0 in. 152.4 cm. Weight: 184.0 lb. oz. 83.462 kg. Patient's BMI: 35.9 3. Vital Signs: BP: 111/73 Pulse: 95 Resp: 16 Temp: 02 Sat: 100 ECG Mon: 4. Pain Intensity: 10 5. Fall Risk: Dizziness: N Needs help standing or walking: N Fallen in the last 3 months: N Fall risk comments: 6. Patient on Blood Thinner: None 7. History of Hypertension: N 8. Opioid Therapy greater than 6 weeks: Y Opiate Contract Signed: 08/21/18 9. Risk Assessment Tool Provided: Opioid Risk Tool 10. Functional Assessment Tool: 59/70 11. Recreational Drug Use: Never Drug Type: Tobacco Use: Current Every Day Smoker Tobacco Type: Cigarettes Amount or Packs/day: 4 CIGS/DAY How Many Years: Alcohol Use: No Frequency: Quant:
--- NOTE | 2018-10-22 14:13 | HPC ---
[facility] [address] [address] [place] [address] PAIN MANAGEMENT CONSULTATION Name: DESEANJOHNATHAN Elver [id number] Admission: 10/21/18 Attend Phys: Macrina Wogn Discharge: Date of : 82 Report #: [id number] THIS REPORT FOR: //name// CC: Macrina Wong Anand Kati DATE OF SERVICE: 10/21/2018 CHIEF COMPLAINT: Chronic pain in her left calf. HISTORY OF PRESENT ILLNESS: This is a 38-year-old female who returns to the pain clinic today for refill of her medications for her ongoing left calf pain. She is very tearful today. She feels like she is not getting any better. She is telling me that she just wants her old life back before her back problems and her left calf pain. She informs me she is able to work as her [employer]EL[employer] job, care for her house and her child, but if she tries to do any additional exercise, then her calf hurts quite significantly rating up to a 10, though at times she is well controlled with her medications at a 2/10. Medications are helpful as well as lying down and using heat to her left calf. She denies any problems with constipation or overmedicated feeling. She is just depressed that she is not getting better since her surgery. ALLERGIES: TRAMADOL. CURRENT LIST OF MEDICATIONS: Amitriptyline 75 mg at bedtime, gabapentin 300 mg 3 times a day, hydrocodone 5/325 three times a day, meloxicam 15 mg daily. PQRS: 1. The patient has arthritic changes in the lower portion of her back. She is not being treated for rheumatoid arthritis. 2. Height is 5 feet, weight is 184, BMI is 35. 3. VITAL SIGNS: 111/73, pulse is 95, respirations 16, oxygen sat is 100. 4. Pain score is 10/10. 5. Denies dizziness. Does not need help walking or standing, has not fallen in the last 3 months. 6. The patient is not on any blood thinners or medicine for hypertension. 7. Opiate therapy is greater than 6 weeks; therefore, an opioid signed contract is on the chart. Her risk assessment tool is low. Functional assessment is 59/70. 8. Recreational drug use, she denies. She is a current smoker of 4 cigarettes a day, and she does not drink alcohol. We did check the prescription monitoring system. The patient is filling appropriately for her medications. We will check a random drug screen on her in the next visit. She does safeguard [place] [address] PAIN MANAGEMENT CONSULTATION Name: JOHNATHAN ANTON Room #: REG [facility] Corrigan#: [id number] Admission: 10/21/18 Attend Phys: Macrina Wong Discharge: Date of : 82 Report #: [id number] PHYSICAL EXAMINATION: GENERAL: This is a well-developed, well-nourished black female who appears her stated age, slightly depressed today, tearful at times. She is alert and orientated. Her speech is fluent. HEENT: Normocephalic, atraumatic. Extraocular eye muscles are intact. Mucous membranes are moist. NECK: Without adenopathy or JVD. EXTREMITIES: Upper extremity strength judged to be 5/5 in all major muscle groups. MUSCULOSKELETAL: The patient complains of pain that is in her left calf, pressure squeezing area is especially increased with walking. Does have pain that is located in her lower back as well. IMPRESSION: 1. History of lumbar radiculopathy, status post surgery at L5-S1. 2. L5-S1 minimally invasive diskectomy. 3. Chronic pain. 4. Management of opioids under terms of written opioid agreement. We reviewed the fact that opiate medications are being used to provide analgesia adequate to support activities of daily living, not attempting to achieve a specific pain score on the 0-10 Visual Analog Scale. The current opiate medications are providing sufficient analgesia to allow the patient to participate in activities of daily living. The patient is not exhibiting any aberrant behavior suggestive of drug diversion. The patient is not having any adverse reactions to medications. The patient is not suffering from daytime somnolence or mental acuity changes. The patient is managing opiate-induced constipation with appropriate onyj-vyd-jrdwgds agents and dietary considerations. The patient was counseled on concern for caution with operating a motor vehicle while using opiate medications. A physical exam was performed and the patient's functional status was evaluated. All patients with back pain were advised against the bed rest greater than 4 days and were advised to return to normal activities. Pain score assessment was noted and the treatment plan was reviewed with the patient. All current medications, both prescribed and OTC were reviewed and reconciled on the electronic medical record. Tobacco screening was accomplished and smoking cessation was advised when indicated. BMI was noted and diet/exercise modification was recommended for all patients following outside normal parameters. I reviewed with the patient today their responsibilities to safeguard prescription medications, reviewed their responsibility to utilize medications only as prescribed by the physician. They are to seek and receive pain medications only from 1 physician group ([facility]). They are to use 1 pharmacy and keep the clinic informed if they change pharmacies. Their [facility] [address] [place] [address] PAIN MANAGEMENT CONSULTATION Name: JOHNATHAN ANTON Room #: REG [facility]#: [id number] Admission: 10/21/18 Attend Phys: Macrina Mcnamarakrzysztof Discharge: Date of : 82 Report #: [id number] responsibilities include making followup visits in a timely fashion and to avoid abrupt discontinuation of medication usage. Their responsibilities further include bringing their medications (bottles from the pharmacy with residual pills) to the visit for possible confirmation of pill counts and the patient understands it is their responsibility to submit to random drug screens to ensure both that the medications prescribed are present, and that no other controlled substances are present. All prescriptions provided today were generated electronically. PLAN: 1. We discussed treatment options with the patient today. The patient is depressed and tearful that she is not getting better and continues to have left calf pain, especially with increased activity. I spent a significant amount of time encouraging the patient trying to encourage her that she is living a very active life, being able to work, care for her house, care for her children on the current pain regimen. It is our hope that her pain in her calf will continue to decrease since she has had surgery, but at least she is able to tolerate her pains with the medication we are giving. The patient does verbalize understanding of that. She just would like her old life back and able to wear high heels and be more active. Again, we reemphasized that at times she does have a pain score of 2/10 with the current regimen she is on. 2. We discussed increasing her gabapentin slightly to see if that would help some of the neuropathic pain that she is experiencing and cramping in her left calf. Script given today for gabapentin 300 mg q.i.d., #120. The patient will experiment taking it 1 in the morning or 1 mid-day whatever is beneficial for her. 3. Scripts also given for meloxicam 15 mg #30 with 1 additional refill, amitriptyline 75 mg, #30, with 1 additional refill. That increase was very beneficial at her last visit from 50 to 75. She is able to sleep better. 4. Hydrocodone 5/325, #90, for today and 4-week release and diazepam #90 with 1 additional refill. The patient does take those for spasms and cramping in her left calf. 5. The patient will return in 2 months for a followup visit. The patient is seen in collaboration with Dr. Сергей Bettencourt. <ELECTRONICALLY SIGNED> By: Macrina Wong 10/22/18 1413 [id number] Macrina Wong /nt
== END ==
LOC: PAIN 06:51
DX: M79.662 Pain in left lower leg (principal); G89.29 Other chronic pain; M54.16 Radiculopathy, lumbar region; Z79.899 Other long term (current) drug therapy; Z79.891 Long term (current) use of opiate analgesic; Z88.8 Allergy status to other drugs, medicaments and biological substances

== ENCOUNTER → 2018-12-18 | Outpatient (CLI) | payer BC ==
[~2018-12-18] VITALS: Ht 152.4 cm; Wt 86.9 kg
[~2018-12-18] MED LIST changes: +CITRACAL + D31 EACH PO; +IRON325 PO; +SENNA8.6 MG PO
[2018-12-18 09:32] VITALS: BP 109/65
--- NOTE | 2018-12-18 09:40 | NUR ---
Pain Clinic Assessment: 1. History of Osteoarthritis: Not Applicable History of Rheumatoid Arthritis: Not Applicable 2. Height: 5 ft. 0 in. 152.4 cm. Weight: 191.6 lb. oz. 86.909 kg. Patient's BMI: 37.4 3. Vital Signs: BP: 109/65 Pulse: 95 Resp: 16 Temp: 02 Sat: 100 ECG Mon: 4. Pain Intensity: 6-NOW, 2-ON GOOD DAYS 5. Fall Risk: Dizziness: N Needs help standing or walking: N Fallen in the last 3 months: N Fall risk comments: 6. Patient on Blood Thinner: None 7. History of Hypertension: N 8. Opioid Therapy greater than 6 weeks: Y Opiate Contract Signed: 08/21/18 9. Risk Assessment Tool Provided: LOW 10. Functional Assessment Tool: / 11. Recreational Drug Use: Never Drug Type: Tobacco Use: Current Every Day Smoker Tobacco Type: Cigarettes Amount or Packs/day: 4 How Many Years: Alcohol Use: No Frequency: Quant:
--- NOTE | 2018-12-25 08:26 | HPC ---
[facility] [address] [place] [address] PAIN MANAGEMENT CONSULTATION Name: JOHNATHAN ANTON Room #: REG [facility] Meenu#: [id number] Admission: 12/18/18 Attend Phys: Nati Bettencourt MD Discharge: Date of : 82 Report #: [id number] THIS REPORT FOR: //name// CC: Anand Bettencourt DATE OF SERVICE: 12/18/2018 PRIMARY CARE PHYSICIAN: Dr. Anand Parikh. CHIEF COMPLAINT: Here for medication renewal, things are going okay, but my iron is low and my vitamin D is low. HISTORY: The patient is a 38-year-old female who has been followed in the pain clinic. As you recall, she has had chronic pain in her left calf. Continues to have pain despite having undergone surgery. She describes it as emanating from the lower portion of her back down to left calf with some left foot pain. She feels that things in left foot may be improving somewhat. Denies any new falls or injuries since we saw her last. She sometimes feel that there is a spasm in her leg and she gets a lightning bolt type discomfort. Rates her pain today as a 6 now and may decrease to 2 on good days. Notes the pain is exacerbated by standing too long, walking for too long, prolonged sitting. Notes that use of her medication as well as lying down and heat, hot baths can be beneficial. She has returned today with a hope of renewing her medications. She feels that these medications enable her to continue working and stay gainfully employed with the least amount of discomfort. ALLERGIES: TRAMADOL. CURRENT MEDICATIONS: Hydrocodone 5/325 one p.o. b.i.d., diazepam 5 mg b.i.d., amitriptyline 50 mg at bedtime, gabapentin 300 mg t.i.d., meloxicam 15 mg daily. PAIN CLINIC ASSESSMENT/PQRS: 1. The patient has some arthritic changes in the lower portion of her back. She is not being treated for rheumatoid arthritis. 2. Height 5 feet 0 inches, weight 191 pounds, BMI is 37.4. 3. Vital signs: Blood pressure 109/65, pulse 95, respiratory rate 16, room air saturation is 100%. 4. Pain intensity 6 now and 2 on good days. 5. Fall risk. The patient has not fallen in the last 3 months. 6. Blood thinner. The patient is not on a blood thinning medication. 7. Hypertension. The patient is not being treated for hypertension. 8. Opioids greater than 6 weeks. The patient received medication from one source, the pain clinic. 9. Risk assessment tool, low for opioids. 10. Functional assessment tool 59/70[place] [address] PAIN MANAGEMENT CONSULTATION Name: DESEANJOHNATHAN L Room #: REG [facility] Meenu#: [id number] Admission: 12/18/18 Attend Phys: Nati Bettencourt MD Discharge: Date of : 82 Report #: [id number] 11. Recreational drug use. The patient denies. 12. Tobacco: The patient denies use of tobacco. 13. Alcohol: The patient denies frequent use of alcoholic beverages. PHYSICAL EXAMINATION: GENERAL: The patient is a well-developed, well-nourished black female, appears her stated age. She is alert and oriented x 3. Her affect is appropriate. Speech is fluent. HEENT: Normocephalic, atraumatic. Extraocular eye muscles intact. Sclerae nonicteric. Mucous membranes are moist. NECK: Without adenopathy or JVD. HEART: Regular rate. S1, S2. LUNGS: Clear to auscultation without rhonchi. ABDOMEN: Nontender. Bowel sounds present. MUSCULOSKELETAL: Upper extremity muscle strength judged to be 5/5 for the major muscle groups in the upper extremity. The patient has some well-healed scar in the lower portion of her back. The patient with pain that radiates down into her left leg into the calf area in the L5-S1 dermatomal distribution. IMPRESSION: 1. History of lumbar radiculopathy, status post surgery at the L4-L5 area. 2. L5-S1 minimally invasive microdiskectomy. 3. History of chronic pain despite surgery. 4. Low iron. The patient is on 325 iron. 5. Constipation. 6. Vitamin D deficiency. RECOMMENDATIONS: We discussed treatment options with the patient. We will continue with her current medications. Feels that her medications are working well. She does not have any concerns with that. She is aware that opioid medications can be problematic in certain patients. She has taken her medications as prescribed. She does not have any problems with dependency. She is not showing signs of addiction. She is taking medications as prescribed. She has returned today with hopes of renewing her medications. We will rewrite her medications for hydrocodone 5 mg 1 p.o. t.i.d. and Valium for muscle spasms 5 mg 1 p.o. t.i.d., total of 90 tablets, amitriptyline 75 mg 1 at bedtime, gabapentin/Neurontin 300 mg 1 p.o. q.i.d., and meloxicam 15 mg 1 p.o. daily. The patient will call us if she has any concerns. We would like to thank you for letting us participate in her care. We hope she continues to improve. <ELECTRONICALLY SIGNED> By: Nati Bettencourt MD 12/25/18 0826 [id number] [id number] Nati Bettencourt MD /[facility]
== END ==
LOC: PAIN 06:52
DX: M54.16 Radiculopathy, lumbar region (principal); K59.00 Constipation, unspecified; E55.9 Vitamin D deficiency, unspecified

== ENCOUNTER → 2019-02-17 | Outpatient (CLI) | payer BC ==
[~2019-02-17] VITALS: Ht 152.4 cm; Wt 90.3 kg
[~2019-02-17] MED LIST changes: +MELOXICAM15 MG PO; +NEURONTIN300 MG PO
[2019-02-17 09:46] VITALS: BP 124/88
--- NOTE | 2019-02-17 09:56 | NUR ---
Pain Clinic Assessment: 1. History of Osteoarthritis: Not Applicable History of Rheumatoid Arthritis: Not Applicable 2. Height: 5 ft. 0 in. 152.4 cm. Weight: 199.0 lb. oz. 90.266 kg. Patient's BMI: 38.9 3. Vital Signs: BP: 124/88 Pulse: 91 Resp: 16 Temp: 02 Sat: 100 ECG Mon: 4. Pain Intensity: 2 5. Fall Risk: Dizziness: N Needs help standing or walking: N Fallen in the last 3 months: N Fall risk comments: 6. Patient on Blood Thinner: None 7. History of Hypertension: N 8. Opioid Therapy greater than 6 weeks: Y Opiate Contract Signed: 08/21/18 9. Risk Assessment Tool Provided: LOW-1 10. Functional Assessment Tool: 11. Recreational Drug Use: Never Drug Type: Tobacco Use: Current Every Day Smoker Tobacco Type: Cigarettes Amount or Packs/day: 4 CIGS How Many Years: 20 Alcohol Use: No Frequency: Quant:
--- NOTE | 2019-02-18 08:46 | HPC ---
[facility] [address] [place] [address] PAIN MANAGEMENT CONSULTATION Name: JOHNATHAN ANTON [id number] Admission: 02/17/19 Attend Phys: Macrina Wong Discharge: Date of : 82 Report #: [id number] THIS REPORT FOR: //name// CC: Macrina Bettencourt MD DATE OF SERVICE: 02/17/2019 CHIEF COMPLAINT: Chronic pain in her left calf. HISTORY OF PRESENT ILLNESS: This is a very pleasant 38-year-old female who returns to the pain clinic today for refill of her medications that she uses to help treat her ongoing low back pain and left calf pain. She reports a pain score of 2/10. States she is doing quite well with her current regimen. Occasionally, she will have lightning bolt pain in her calf and spasms, especially if she is walking too long or sitting too long. She feels that the medications are beneficial as well as lying down and using heat. She denies any problems with constipation. She has changed her diet and feels that has been helpful. She does report that she is having some problems sleeping at night on the days that she is off. 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 ALLERGIES: TRAMADOL. CURRENT LIST OF MEDICATIONS: Meloxicam 15 mg daily, hydrocodone 5/325 t.i.d. p.r.n., gabapentin 300 mg 4 times a day, Valium, amitriptyline 75 mg at bedtime, Senokot, calcium, iron, Tylenol Extra Strength. PATIENT'S PQRS: 1. She has some arthritic changes in her lower portion of her spine. Denies any rheumatoid arthritis. 2. Height is 5 feet, weight is 199, BMI is 38. 3. Vital Signs: Blood pressure 124/88, pulse is 91, respirations 16, oxygen sat is 100. 4. Pain score is 2/10. 5. Denies dizziness, does not need help walking, has not fallen in the last 3 months. 6. The patient is not on any blood thinners or medicines for hypertension. 7. Opiate therapy is greater than 6 weeks; therefore, an opioid signed contract is on the chart. Risk assessment tool is low. Functional assessment is . 8. Recreational drug use, she denies. She is a current smoker of 4 cigarettes a day, trying to decrease this and quit. Does not drink alcohol. According to the prescription monitoring system, the patient is filling [address] [address] PAIN MANAGEMENT CONSULTATION Name: JOHNATHAN ANTON Room #: REG [facility] Meenu#: [id number] Admission: 02/17/19 Attend Phys: Macrina Wong Discharge: Date of : 82 Report #: [id number] appropriately for her medications with no aberrant fills. She is due to fill her medications today. There is a recent drug screen on the chart that is appropriate for her medications. PHYSICAL EXAMINATION: GENERAL: This is alert and orientated 38-year-old female who appears her stated age, placing her current pain score at 2/10 today. She is quite upbeat and her affect is appropriate. HEENT: Normocephalic, atraumatic. Extraocular eye muscles are intact. Mucous membranes are moist. NECK: Without adenopathy or JVD. ABDOMEN: Nontender. Bowel sounds are present. MUSCULOSKELETAL: The patient has a well-healed scar in the lower portion of her lumbar spine. Pain radiates from her lower back into her left calf following the L5-S1 dermatomal distribution. Her lower extremity muscle groups appear symmetrical in strength and tone at 5/5. The patient walks with a normal gait. IMPRESSION: 1. History of lumbar radiculopathy post-surgery at the L4-L5 region. 2. L5-S1 minimally invasive microdiscectomy. 3. History of chronic pain. 4. Habituation to tobacco. PLAN: 1. We discussed treatment options with the patient today. The patient finds her medications very beneficial allowing her good analgesic and able to be active with her child and at work. She feels that she is not having any adverse reactions to these medications. We will refill her hydrocodone 5/325, #90 today and 4-week release. 2. We will refill her diazepam 5 mg #90 with one additional refill. 3. We did discuss her amitriptyline and gabapentin. She feels that she is not sleeping as well during her off days. I encouraged her to alternate how she takes her gabapentin on her off days. I encouraged her to take 2 in the morning and 2 at night along with her amitriptyline on those days. The patient verbalizes understanding. We will try this. We did refill her gabapentin at 120 pills with one additional refill and amitriptyline 75 mg, #30 with one additional refill. 4. We also refilled meloxicam 15 mg, #30 with 1 refill. The patient has denied any GI upset or dyspepsia from this medication. 5. We did talk about smoking cessation and increasing her weight due to trying to quit smoking. I encouraged her to be as active as possible, try to watch her caloric intake as well. The patient reports that she is smoking about 4 cigarettes a day. I encouraged her to pick a date in the future and that will be her stop date. She verbalizes understanding. She knows she needs to set this goal for herself as well. [facility] [address] [place] [address] PAIN MANAGEMENT CONSULTATION Name: JOHNATHAN ANTON Room #: [facility] Meenu#: [id number] Admission: 02/17/19 Attend Phys: Macrina Wong Discharge: Date of : 82 Report #: [id number] The patient seen in collaboration with Dr. Сергей Bettencourt. <ELECTRONICALLY SIGNED> By: Macrina Wong 02/18/19 [id number] Macrina Wong /nt
== END ==
LOC: PAIN 06:58
DX: M54.16 Radiculopathy, lumbar region (principal); G89.29 Other chronic pain

== ENCOUNTER → 2019-04-21 | Outpatient (CLI) | payer BC ==
[~2019-04-21] VITALS: Ht 152.4 cm; Wt 88.9 kg
[~2019-04-21] MED LIST changes: +ALKA-SELTZER P1 EA10 PO; +AMITRIPTYLINE H75 M2 PO; +PROBIOTIC1 EAC7 PO
[2019-04-21 09:58] VITALS: BP 118/74
--- NOTE | 2019-04-21 10:13 | NUR ---
Pain Clinic Assessment: 1. History of Osteoarthritis: Not Applicable History of Rheumatoid Arthritis: Not Applicable 2. Height: 5 ft. 0 in. 152.4 cm. Weight: 196.0 lb. oz. 88.905 kg. Patient's BMI: 38.3 3. Vital Signs: BP: 118/74 Pulse: 100 Resp: 16 Temp: 02 Sat: 100 ECG Mon: 4. Pain Intensity: 4 5. Fall Risk: Dizziness: Y Needs help standing or walking: N Fallen in the last 3 months: N Fall risk comments: 6. Patient on Blood Thinner: None 7. History of Hypertension: N 8. Opioid Therapy greater than 6 weeks: Y Opiate Contract Signed: 08/21/18 9. Risk Assessment Tool Provided: LOW-1 10. Functional Assessment Tool: 11. Recreational Drug Use: Never Drug Type: Tobacco Use: Current Every Day Smoker Tobacco Type: Cigarettes Amount or Packs/day: 4 cigs/day How Many Years: 20 Alcohol Use: No Frequency: Quant:
--- NOTE | 2019-04-22 09:25 | HPC ---
[facility] [address] [address] PAIN MANAGEMENT CONSULTATION Name: JOHNATHAN ANTON Room #: REG [facility].#: [id number] Admission: 04/21/19 Attend Phys: Macrina Wong Discharge: Date of : 82 Report #: [id number] THIS REPORT FOR: cc: Anand Parikh Andrea RNP Hocker,Macrina NG ~ THIS REPORT FOR: //name// DATE OF SERVICE: 04/21/2019 CHIEF COMPLAINT: Low back pain, chronic left calf pain. HISTORY OF PRESENT ILLNESS: This is a pleasant 39-year-old female who returns to the pain clinic today for refill of her medications. She is reporting a pain score 4/10, which she said is slightly higher than her average due to the weather changes. She feels that the cold weather has increased her pain as well as when she is walking for a long period of time or standing for long periods of time. This pain is located in her lower back and left calf and left knee. It is a constant spasm and weakness, but she feels that her medications have been helpful as well as lying down and using heat at the end of her workday. She denies any problems with constipation or daytime sleepiness. She does report that she is sleeping slightly better with her changes in making her gabapentin 2 tablets before bedtime. Today, she would like refills of her medications. ALLERGIES: TRAMADOL. CURRENT LIST OF MEDICATIONS: Probiotic hydrocodone 5/325 t.i.d., Valium 5 mg t.i.d., gabapentin 300 mg q.i.d., amitriptyline 75 mg at bedtime, meloxicam 15 mg daily, Senokot, calcium, iron and extra strength Tylenol. PQRS: 1. She has arthritic changes in her lumbar spine. Denies any rheumatoid arthritis. 2. Height is 5 feet, weight is 196, BMI is 38. 3. Vital signs 118/74, pulse is 100, respirations are 16, oxygen sat is 100. 4. Pain score is 4/10. 5. Denies dizziness, does not need help walking or standing, has not fallen in the last 3 months. 6. The patient is not on any blood thinners and does not take medicine for hypertension. Opioid therapy is greater than 6 weeks; therefore, an opioid signed contract is on the chart. Risk assessment tool is low. Functional assessment is . 7. Recreational drug use, she denies. She currently smokes 4 cigarettes a day and does not drink alcohol. [address] [address] PAIN MANAGEMENT CONSULTATION Name: JOHNATHAN ANTON Room #: REG [facility]#: [id number] Admission: 04/21/19 Attend Phys: Macrina Wong Discharge: Date of : 82 Report #: [id number] According to the prescription monitoring system, the patient is filling appropriately due to fill her medications today. She has an appropriate drug screen on the chart. According to the CDC guidelines, her morphine mEq per day is 15 MME. PHYSICAL EXAMINATION: GENERAL: This is alert and orientated 39-year-old female who appears her stated age, placing her current pain score 4/10 today. HEENT: Normocephalic, atraumatic. Extraocular eye muscles are intact. Mucous membranes are moist. NECK: Without adenopathy or JVD. MUSCULOSKELETAL: She has a well-healed scar in her lumbar spine. Pain radiates from her lumbar back into her left leg following the L5-S1 dermatomal distribution. Lower extremity strength judged to be 5/5 in all major muscle groups. IMPRESSION: 1. History of lumbar radiculopathy, post-laminectomy syndrome at the L4-L5 distribution. 2. L5 minimally invasive microdiskectomy. 3. History of chronic pain. 4. Habituation to tobacco. 5. Complex medical management. We reviewed the fact that opiate medications are being used to provide analgesia adequate to support activities of daily living, not attempting to achieve a specific pain score on the 0-10 Visual Analog Scale. The current opiate medications are providing sufficient analgesia to allow the patient to participate in activities of daily living. The patient is not exhibiting any aberrant behavior suggestive of drug diversion. The patient is not having any adverse reactions to medications. The patient is not suffering from daytime somnolence or mental acuity changes. The patient is managing opiate-induced constipation with appropriate brtb-nal-sugjqwe agents and dietary considerations. The patient was counseled on concern for caution with operating a motor vehicle while using opiate medications. PLAN: 1. We discussed treatment options with the patient today. The patient feels that she is sleeping slightly better with rotating her gabapentin schedule 2 in the morning and 2 at night as well as her amitriptyline at her nighttime. We will refill these medications today for gabapentin 30 mg, #120 with one additional refill, amitriptyline 75 mg, #30 with one additional refill, meloxicam 15 mg, #30 with one additional refill. 2. We will have Dr. Сергей Bettencourt who is collaborating care today and did see the patient as well, write the hydrocodone 5/325 t.i.d., #90, for today and [address] [address] PAIN MANAGEMENT CONSULTATION Name: JOHNATHAN ANTON Room #: REG [facility] Meenu#: [id number] Admission: 04/21/19 Attend Phys: Macrina Wong Discharge: Date of : 82 Report #: [id number] 4-week release and diazepam 5 mg #90 with one additional refill. 3. The patient will return in 2 months for an appointment. <ELECTRONICALLY SIGNED> By: Macrina Wong 04/22/19 0925 [id number] 13 Macrina Wong /kenzie
== END ==
LOC: PAIN 06:44
DX: M96.1 Postlaminectomy syndrome, not elsewhere classified (principal); G89.29 Other chronic pain; F17.200 Nicotine dependence, unspecified, uncomplicated; Z79.899 Other long term (current) drug therapy; Z79.891 Long term (current) use of opiate analgesic

== ENCOUNTER → 2019-06-16 | Outpatient (CLI) | payer BC ==
[~2019-06-16] VITALS: Ht 152.4 cm; Wt 89.4 kg
[~2019-06-16] MED LIST changes: +NORCO 5-325 TA1 EAC1 PO
[2019-06-16 09:55] VITALS: BP 128/72
--- NOTE | 2019-06-16 10:09 | NUR ---
Pain Clinic Assessment: 1. History of Osteoarthritis: Not Applicable History of Rheumatoid Arthritis: Not Applicable 2. Height: 5 ft. 0 in. 152.4 cm. Weight: 197.0 lb. oz. 89.359 kg. Patient's BMI: 38.5 3. Vital Signs: BP: 128/72 Pulse: 93 Resp: 16 Temp: 02 Sat: 100 ECG Mon: 4. Pain Intensity: 6 5. Fall Risk: Dizziness: Y Needs help standing or walking: N Fallen in the last 3 months: N Fall risk comments: 6. Patient on Blood Thinner: None 7. History of Hypertension: N 8. Opioid Therapy greater than 6 weeks: Y Opiate Contract Signed: 08/21/18 9. Risk Assessment Tool Provided: LOW-1 10. Functional Assessment Tool: 11. Recreational Drug Use: Never Drug Type: Tobacco Use: Current Every Day Smoker Tobacco Type: Cigarettes Amount or Packs/day: 8 CIG How Many Years: 20 Alcohol Use: No Frequency: Quant:
--- NOTE | 2019-06-17 07:55 | HPC ---
[facility] [address] [address] PAIN MANAGEMENT CONSULTATION Name: JOHNATHAN ANTON Room #: REG [facility].#: [id number] Admission: 06/16/19 Attend Phys: Macrina Wong Discharge: Date of : 82 Report #: [id number] THIS REPORT FOR: cc: Anand Parikh Andrea RNP Hocker,Macrina NG ~ CC: Nati Bettencourt DATE OF SERVICE: 06/16/2019 CHIEF COMPLAINT: Low back pain, chronic left calf pain. HISTORY OF PRESENT ILLNESS: This is a very pleasant 39-year-old female who returns to the Pain Clinic today for refill of her medications. Today, she is reporting her pain score as 6/10. She reports has been in her low back and left calf, continues to be problematic, especially when she is trying to sleep, which she states she has been having difficulties with lately. She states her pain is increased with prolonged walking and standing, but also wakes her. She does state that the medicines have been beneficial as well as heat. The patient does report that she had a problem with her gabapentin. 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 She is having more calf pain, but did develop vertigo by taking too much gabapentin, so she has decreased that dose back to her 3 tablets a day. She reports that she is trying to find different ways to assist her with sleeping. ALLERGIES: TRAMADOL. CURRENT LIST OF MEDICATIONS: Amitriptyline 75 mg at bedtime, gabapentin 300 mg t.i.d., meloxicam 15 mg daily, hydrocodone 5/325 t.i.d. p.r.n., Valium 5 mg, probiotic, [place], senna, Citracal, iron and Tylenol Extra Strength. PQRS: 1. She has arthritic changes in her lumbar spine. She denies any rheumatoid arthritis. 2. Height is 5 feet, weight is 197, BMI is 38. 3. Vital signs 128/72, pulse is 93, respirations 16, oxygen sat is 100. 4. Pain score 6/10. 5. Complains of dizziness, does not need help walking or standing, has not fallen in the last 3 months. 6. The patient is not on any blood thinners or medicine for hypertension. 7. Opiate therapy is greater than 6 weeks; therefore, an opioid signed contract is on the chart. Risk assessment tool is low. Functional assessment is . 8. Recreational drug use, she denies. She does currently smoke about 8 cigarettes a day [place] [address] PAIN MANAGEMENT CONSULTATION Name: JOHNATHAN ANTON [facility] [id number] Admission: 06/16/19 Attend Phys: Macrina Wong Discharge: Date of : 82 Report #: [id number] According to the prescription monitoring system, the patient is filling appropriately for her medications. She is due to fill those this week. According to the CDC guidelines, her morphine mEq is 15 MME or lower. PHYSICAL EXAMINATION: GENERAL: This is alert and orientated 39-year-old female who is rating her pain score at 6/10 today. HEENT: Normocephalic, atraumatic. Extraocular eye muscles are intact. Mucous membranes are moist. NECK: Without adenopathy or JVD. MUSCULOSKELETAL: The patient has pain and discomfort radiating down into her leg following the L5-S1 dermatomal distribution in the left calf is most problematic. She has a well-healed scar in the mid portion of her lumbar spine. Her upper and lower extremity strength judged to be 5/5 in all major muscle groups. IMPRESSION: 1. History of lumbar radiculopathy, status post surgery at L5-S1. 2. L5-S1 minimally invasive diskectomy. 3. History of chronic pain. 4. Habituation of tobacco. 5. Complex medical management. We reviewed the fact that opiate medications are being used to provide analgesia adequate to support activities of daily living, not attempting to achieve a specific pain score on the 0-10 Visual Analog Scale. The current opiate medications are providing sufficient analgesia to allow the patient to participate in activities of daily living. The patient is not exhibiting any aberrant behavior suggestive of drug diversion. The patient is not having any adverse reactions to medications. The patient is not suffering from daytime somnolence or mental acuity changes. The patient is managing opiate-induced constipation with appropriate mias-wln-jpdbhke agents and dietary considerations. The patient was counseled on concern for caution with operating a motor vehicle while using opiate medications. A physical exam was performed and the patient's functional status was evaluated. All patients with back pain were advised against the bed rest greater than 4 days and were advised to return to normal activities. Pain score assessment was noted and the treatment plan was reviewed with the patient. All current medications, both prescribed and OTC were reviewed and reconciled on the electronic medical record. Tobacco screening was accomplished and smoking cessation was advised when indicated. BMI was noted and diet/exercise modification was recommended for all patients following outside normal parameters. I reviewed with the patient today their responsibilities to [facility] [address] [place] [address] PAIN MANAGEMENT CONSULTATION Name: JOHNATHAN ANTON Room #: REG CLEva Perez#: [id number] Admission: 06/16/19 Attend Phys: Macrina Wong Discharge: Date of : 82 Report #: [id number] prescription medications, reviewed their responsibility to utilize medications only as prescribed by the physician. They are to seek and receive pain medications only from 1 physician group ( [facility]). They are to use 1 pharmacy and keep the clinic informed if they change pharmacies. Their responsibilities include making followup visits in a timely fashion and to avoid abrupt discontinuation of medication usage. Their responsibilities further include bringing their medications (bottles from the pharmacy with residual pills) to the visit for possible confirmation of pill counts and the patient understands it is their responsibility to submit to random drug screens to ensure both that the medications prescribed are present, and that no other controlled substances are present. All prescriptions provided today were generated electronically. PLAN: 1. We discussed treatment options with the patient today. The patient finds her medications beneficial, though she still continues to have difficulty sleeping. We attempted to increase her gabapentin to aid in her sleep and pain issues which did cause side effects of vertigo. She has decreased back to 3 times a day. I encouraged the patient to try to limit any electronics before sleep and sleep in a quiet environment. The patient reports she is trying to do that, but does not want any increases in medications at this time. 2. We will refill her hydrocodone 5/325, #90 for today and 4 weeks supply as well as her diazepam 5 mg #90 with one additional refill. These will be written by Dr. Сергей Bettencourt who did see the patient and collaborated care. The patient will return in 2 months for an appointment. I did explain to the patient that we are encouraging to try and take the lowest most effective dose of opioid medications during the COVID outbreak in case there is a supply chain issue of medications. We are hopeful that this does not happen, but counseling our patients to use the lowest most effective dose to avoid withdrawal symptoms if there is not medications in the future. <ELECTRONICALLY SIGNED> By: Macrina Wong 06/17/19 [id number] Macrina Wong /nt
== END | disposition home or self-care (01) ==
LOC: PAIN 06:48
DX: M54.5 Low back pain (principal); M79.662 Pain in left lower leg; G89.29 Other chronic pain; F17.210 Nicotine dependence, cigarettes, uncomplicated; Z98.890 Other specified postprocedural states; Z79.891 Long term (current) use of opiate analgesic; Z88.8 Allergy status to other drugs, medicaments and biological substances; Z79.899 Other long term (current) drug therapy

== ENCOUNTER → 2019-08-13 | Outpatient (CLI) | payer BC ==
[~2019-08-13] VITALS: Ht 152.4 cm; Wt 89.4 kg
--- NOTE | ~2019-08-13 | HPC ---
[facility] [place] [address] PAIN MANAGEMENT CONSULTATION Name: JOHNATHAN ANTON Room #: REG [facility]#: [id number] Admission: 08/13/19 Attend Phys: Nati Bettencourt MD Discharge: Date of : 82 Report #: [id number] THIS REPORT FOR: cc: Anand Parikh,Nati Garcia MD ~ CC: Anand Bettencourt DATE OF SERVICE: 08/13/2019 CHIEF COMPLAINT: Here for medication renewal. HISTORY: The patient is a 39-year-old female who has been followed in the pain clinic because of chronic pain. She has experienced back pain and discomfort. She has returned today for renewal of her medications. She rates her pain as 5/10. She feels that her medications of amitriptyline, hydrocodone, gabapentin and meloxicam are helpful. Finds that diazepam is helpful with muscle spasms. She has had some pain in her left knee. She is having less vertigo now that her gabapentin dose has been changed. She has noticed an increase in the amount of activity that she has had to perform at work. The COVID-19 pandemic has significantly changed her lifestyle. ALLERGIES: TRAMADOL. CURRENT MEDICATIONS: Amitriptyline 75 mg 1 p.o. at bedtime, Neurontin 300 mg 4 times daily, hydrocodone 5/325 t.i.d., meloxicam 15 mg daily, Valium 5 mg 1 p.o. t.i.d. PAIN CLINIC ASSESSMENT AND PQRS: 1. The patient has some discomfort in the low back area. She is not being treated for rheumatoid arthritis. 2. Height 5 feet 0, weight 197 pounds, BMI is 38.5. 3. Vital Signs: Blood pressure 110/72, pulse 104, respiratory rate 16, room air saturation is 100%. 4. Pain intensity, 5/10. 5. Fall history. The patient has not fallen in the last 3 months. 6. Blood thinner. The patient is not on a blood thinning medication. 7. History of hypertension. 8. Opioids greater than 6 weeks. The patient receives medication from the pain clinic. 9. Risk assessment tool, low for opioid use. 10. Functional assessment tool, . 11. Recreational drug use. The patient denies. 12. Tobacco. The patient smokes 8 cigarettes per day, has smoked for the last 20 years. [facility] [address] [place] [address] PAIN MANAGEMENT CONSULTATION Name: JOHNATHAN ANTON Room #: REG [facility]#: [id number] Admission: 08/13/19 Attend Phys: Nati Bettencourt MD Discharge: Date of : 82 Report #: [id number] 13. Alcohol. The patient denies frequent use of alcoholic beverages. PHYSICAL EXAMINATION: GENERAL: The patient is a well-developed, well-nourished, black female. Appears her stated age. She is alert and oriented x 3. Her affect is appropriate. Speech is fluent. HEENT: Normocephalic, atraumatic. Extraocular eye muscles intact. Sclerae nonicteric. Mucous membranes are moist. NECK: Without adenopathy or JVD. HEART: Regular rate. LUNGS: Generally clear to auscultation. ABDOMEN: Nontender. MUSCULOSKELETAL: Strength upper extremity 5/5 for the major muscle groups. The patient has a well-healed scar in the lower portion of her back. Has pain that continues to radiate down into her legs and involves the L5-S1 dermatomal distribution. IMPRESSION: 1. History of lumbar radiculopathy, status post surgery at the L4-L5 area. 2. L5-S1 minimally invasive microdiskectomy. 3. History of chronic back pain despite surgery. 4. Low iron. 5. Constipation. 6. Vitamin D deficiency. RECOMMENDATIONS: We discussed treatment options with the patient. At this juncture, we will continue with her current medication regimen. A script for her medications have been written. She will call us if she has any concerns. Her medications have been forwarded to her pharmacy. Amitriptyline, gabapentin, hydrocodone, meloxicam 15 mg, diazepam have all been sent. She will call us if she has any concerns. We would like to thank you for letting us participate in her care. We hope she continues to improve. By: [id number] Nati Bettencourt MD /CECILIA
[2019-08-13 08:54] VITALS: BP 110/72
--- NOTE | 2019-08-13 09:24 | NUR ---
Pain Clinic Assessment: 1. History of Osteoarthritis: Not Applicable History of Rheumatoid Arthritis: Not Applicable 2. Height: 5 ft. 0 in. 152.4 cm. Weight: 197.2 lb. oz. 89.449 kg. Patient's BMI: 38.5 3. Vital Signs: BP: 110/72 Pulse: 104 Resp: 16 Temp: 02 Sat: 100 ECG Mon: 4. Pain Intensity: 5 5. Fall Risk: Dizziness: N Needs help standing or walking: N Fallen in the last 3 months: N Fall risk comments: 6. Patient on Blood Thinner: None 7. History of Hypertension: N 8. Opioid Therapy greater than 6 weeks: Y Opiate Contract Signed: 08/21/18 9. Risk Assessment Tool Provided: LOW-1 10. Functional Assessment Tool: 11. Recreational Drug Use: Never Drug Type: Tobacco Use: Current Every Day Smoker Tobacco Type: Cigarettes Amount or Packs/day: 8 CIGS How Many Years: 20 Alcohol Use: No Frequency: Quant:
== END ==
LOC: PAIN 06:55
DX: G89.29 Other chronic pain (principal); E55.9 Vitamin D deficiency, unspecified; M54.9 Dorsalgia, unspecified; K59.00 Constipation, unspecified; I10 Essential (primary) hypertension; M06.80 Other specified rheumatoid arthritis, unspecified site; F11.90 Opioid use, unspecified, uncomplicated; Z88.6 Allergy status to analgesic agent

== ENCOUNTER → 2019-10-08 | Outpatient (CLI) | payer BC ==
[~2019-10-08] VITALS: Ht 152.4 cm; Wt 90.2 kg
[~2019-10-08] MED LIST changes: +NORCO 5-325 TA1 EAC2 PO
[2019-10-08 08:19] VITALS: BP 113/76
--- NOTE | 2019-10-08 08:40 | NUR ---
Pain Clinic Assessment: 1. History of Osteoarthritis: Not Applicable History of Rheumatoid Arthritis: Not Applicable 2. Height: 5 ft. 0 in. 152.4 cm. Weight: 198.8 lb. oz. 90.175 kg. Patient's BMI: 38.8 3. Vital Signs: BP: 113/76 Pulse: 91 Resp: 16 Temp: 02 Sat: 98 ECG Mon: 4. Pain Intensity: 6 5. Fall Risk: Dizziness: N Needs help standing or walking: N Fallen in the last 3 months: N Fall risk comments: 6. Patient on Blood Thinner: None 7. History of Hypertension: N 8. Opioid Therapy greater than 6 weeks: Y Opiate Contract Signed: 08/21/18 9. Risk Assessment Tool Provided: LOW-1 10. Functional Assessment Tool: 11. Recreational Drug Use: Never Drug Type: Tobacco Use: Current Every Day Smoker Tobacco Type: Cigarettes Amount or Packs/day: 8-10 CIGS How Many Years: 20 Alcohol Use: No Frequency: Quant:
--- NOTE | 2019-10-11 08:57 | HPC ---
[facility] [address] [place] [address] PAIN MANAGEMENT CONSULTATION Name: JOHNATHAN ANTON Room #: REG [facility].#: [id number] Admission: 10/08/19 Attend Phys: Macrina Wong Discharge: Date of : 82 Report #: [id number] THIS REPORT FOR: cc: Anand Parikh Andrea RNP Hocker, Amanda CNS ~ CC: Flo Bettencourt MD DATE OF SERVICE: 10/08/2019 CHIEF COMPLAINT: Low back pain, chronic left calf pain. HISTORY OF PRESENT ILLNESS: As you know, this is a very pleasant 39-year-old female who continues to experience low back pain that does radiate down her left leg. She reports significant calf pain throughout the day. Upon awakening in the morning, her pain in her lower back is the most intense. She states that she does use a pillow, [place] balm and hot baths as well as her medication to relieve the discomfort at night. She states that her back pain does persist when she walks too long or lies in one position too long. She feels like it is a spasming constant weakness, stating it is a 6/10 today. 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 She does report that she has recently had several stressors in her life, which has increased her pain, she believes due to more work duties and then loss of a young family member due to a motor vehicle accident just recently. Today, she is here for refills of her medication. ALLERGIES: TRAMADOL. CURRENT LIST OF MEDICATIONS: Amitriptyline, diazepam 5 mg t.i.d. p.r.n., meloxicam 15 mg daily, hydrocodone 5/325 p.r.n., gabapentin, probiotic, senna, Citracal, iron, and Tylenol. PQRS: 1. She has osteoarthritis in her lumbar region of her back. She is not being treated for rheumatoid arthritis. 2. Height is 5 feet, weight is 198, BMI is 38. Vital signs 113/76, pulse is 91, respirations 16, oxygen sat is 98%. Pain score is 6/10. 3. Fall risk. Denies dizziness, does not need help walking or standing, has not fallen in the last 3 months. The patient is not on any blood thinners or medicine for hypertension. Her opioid therapy is greater than 6 weeks; therefore, an opioid signed contract is on the chart. Risk assessment tool is low. Functional assessment is . 4. Recreational drug use, she denies. She is a current smoker of cigarettes, 8-10 cigarettes a day and does not drink alcohol. According to the prescription monitoring system, the patient is filling [address] [address] PAIN MANAGEMENT CONSULTATION Name: JOHNATHAN ANTON Room #: REG [facility] Meenu#: [id number] Admission: 10/08/19 Attend Phys: Macrina Wong Discharge: Date of : 81 Report #: [id number] appropriately and due to fill her medications today. Her morphine mEq is 15 MMEs according to the CDC guidelines. There is a recent drug screen on the chart that is appropriate as well. PHYSICAL EXAMINATION: GENERAL: This is a well-developed, well-nourished black female who appears her stated age, placing her current pain score at 6/10. Her affect is appropriate. HEENT: Normocephalic, atraumatic. Extraocular eye muscles are intact. Sclerae are nonintrinsic. She is wearing a mask. NECK: Without adenopathy or JVD. MUSCULOSKELETAL: The patient has a well-healed scar in the lumbar portion of her back. Pain radiates from her lumbar region down her left leg following the L5-S1 dermatomal distribution. Her strength in her upper and lower extremities is symmetrical with good sensation at 5/5. IMPRESSION: 1. History of lumbar radiculopathy, status post surgery at the L4-L5 level. 2. L5-S1 minimally invasive microdiskectomy. 3. Chronic back pain. 4. Low iron. 5. Constipation. 6. Opioid management under written agreement. We reviewed the fact that opiate medications are being used to provide analgesia adequate to support activities of daily living, not attempting to achieve a specific pain score on the 0-10 Visual Analog Scale. The current opiate medications are providing sufficient analgesia to allow the patient to participate in activities of daily living. The patient is not exhibiting any aberrant behavior suggestive of drug diversion. The patient is not having any adverse reactions to medications. The patient is not suffering from daytime somnolence or mental acuity changes. The patient is managing opiate-induced constipation with appropriate fusx-nwx-nzkxhkz agents and dietary considerations. The patient was counseled on concern for caution with operating a motor vehicle while using opiate medications. PLAN: 1. We discussed treatment options with the patient today. The patient continues to find her medications beneficial in relieving the majority of her pain. At times, she does have flares, recently has been increased for longer periods. We did briefly discuss a lumbar epidural steroid injection that Dr. Bettencourt could perform. She has not had an injection for quite some time, due to them losing the efficacy, it has been since 2018. It may be beneficial to try to see if we could decrease some of her increasing pain. The patient will consider this and make an appointment with Dr. Bettencourt as needed. 2. We will have Dr. Bettencourt send her hydrocodone 5/325, #90, for today and 4-week supply to her pharmacy as well as diazepam 5 mg, #90 with one additional refill. [facility] [address] [place] [address] PAIN MANAGEMENT CONSULTATION Name: JOHNATHAN ANTON Room #: REG [facility]#: [id number] Admission: 10/08/19 Attend Phys: Macrina Wong Discharge: Date of : 82 Report #: [id number] 3. The patient does have plenty of amitriptyline, gabapentin and meloxicam. 4. The patient is seen in collaboration with Dr. Bettencourt. The patient will call for an appointment. <ELECTRONICALLY SIGNED> By: Macrina Wong 10/11/19 [phone] [id number] Macrina Wong /nt
== END ==
LOC: PAIN 06:36
PROVIDERS: ATTEND Clinical Nurse Specialist Adult Health
DX: M54.5 Low back pain (principal); M96.1 Postlaminectomy syndrome, not elsewhere classified; G89.29 Other chronic pain; E61.1 Iron deficiency; K59.00 Constipation, unspecified; F11.20 Opioid dependence, uncomplicated; Z88.8 Allergy status to other drugs, medicaments and biological substances; Z79.899 Other long term (current) drug therapy; Z86.79 Personal history of other diseases of the circulatory system

== ENCOUNTER → 2019-12-08 | Outpatient (CLI) | payer OTHER ==
[~2019-12-08] VITALS: Ht 152.4 cm; Wt 84.9 kg
[2019-12-08 09:51] VITALS: BP 124/72
--- NOTE | 2019-12-08 10:20 | NUR ---
Pain Clinic Assessment: 1. History of Osteoarthritis: DENIES History of Rheumatoid Arthritis: DENIES 2. Height: 5 ft. 0 in. 152.4 cm. Weight: 187.2 lb. oz. 84.913 kg. Patient's BMI: 36.6 3. Vital Signs: BP: 124/72 Pulse: 88 Resp: 20 Temp: 02 Sat: 100 ECG Mon: 4. Pain Intensity: 10 5. Fall Risk: Dizziness: Y Needs help standing or walking: N Fallen in the last 3 months: Y Fall risk comments: 6. Patient on Blood Thinner: None 7. History of Hypertension: N 8. Opioid Therapy greater than 6 weeks: Y Opiate Contract Signed: 08/21/18 9. Risk Assessment Tool Provided: LOW-1 10. Functional Assessment Tool: 11. Recreational Drug Use: Never Drug Type: Tobacco Use: Current Every Day Smoker Tobacco Type: Cigarettes Amount or Packs/day: .5 How Many Years: 15 Alcohol Use: No Frequency: Quant:
--- NOTE | 2019-12-09 07:57 | HPC ---
[facility] [address] [address] PAIN MANAGEMENT CONSULTATION Name: JOHNATHAN ANTON Room #: REG [facility] M..#: [id number] Admission: 12/08/19 Attend Phys: Macrina Wong Discharge: Date of : 82 Report #: [id number] THIS REPORT FOR: cc: Anand Parikh Andrea RNP Hocker,Macrina NG ~ CC: Flo Bettencourt MD DATE OF SERVICE: 12/08/2019 CHIEF COMPLAINT: Low back pain, chronic left calf pain. HISTORY OF PRESENT ILLNESS: This is a 39-year-old female who returns to the pain clinic today reporting that her pain has slowly been increasing due to the fact that she is having to do more at work. 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 She states that her left leg has been problematic as well, which it had been in the past. She is reporting her pain score 10/10 today, states that it is a constant, aching pain. The medications are beneficial as well as lying down. She has been using [place] balm, which is also very beneficial per her report. Today, she is requesting refills of her hydrocodone and diazepam that she takes for a muscle relaxant. ALLERGIES: TRAMADOL. CURRENT LIST OF MEDICATIONS: Hydrocodone 5/325 p.r.n., diazepam 5 mg p.r.n., meloxicam, gabapentin, amitriptyline, probiotic, senna, Citracal, iron and Tylenol Extra Strength. PQRS: 1. She has osteoarthritic changes in her lumbar region of her spine. She denies any rheumatoid arthritis. 2. Height is 5 feet, weight is 187, BMI is 36. 3. Vital Signs: 124/72, pulse is 88, respirations 20, oxygen sat is 100. 4. Pain score is 10/10. Fall risk. Complains of slight dizziness. Does not need assistance walking, has fallen in the last 3 months, but was not injured and did not seek medical attention. 5. Opioid therapy is greater than 6 weeks; therefore, an opioid signed contract is on the chart. Risk assessment tool is low. Functional assessment is . 6. Recreational drug use, she denies. She is a current smoker of a half a pack of cigarettes a day and denies any alcohol intake. According to the prescription monitoring system, her morphine mEq is 15 MMEs per day. She does take a benzodiazepine as well as an opioid, but does not take them at the same time per her report. There is a recent drug screen on her [address] [address] PAIN MANAGEMENT CONSULTATION Name: JOHNATHAN ANTON Room #: REG [facility]#: [id number] Admission: 12/08/19 Attend Phys: Macrina Wong Discharge: Date of : 82 Report #: [id number] chart that is appropriate for her medications. PHYSICAL EXAMINATION: GENERAL: This is alert and orientated, well-developed black female, who reports her pain score at 10/10. Her affect is slightly depressed. HEENT: Normocephalic, atraumatic. Extraocular eye muscles are intact. Sclerae are nonintrinsic. She is wearing a mask. NECK: Without adenopathy or JVD with good range of motion. EXTREMITIES: Upper extremity strength judged to be 5/5 in major muscle groups with symmetry and normal cessation. MUSCULOSKELETAL: She is without significant kyphosis, scoliosis or lordosis. She does have discomfort in the lower portion of her back that radiates down her L5-S1 into her left leg. Notes left calf feeling like a Charley horse. IMPRESSION: 1. Lumbar radiculopathy, L5-S1 minimally invasive microdiskectomy. 2. Chronic back pain. 3. Opioid medication management under written agreement. We reviewed the fact that opiate medications are being used to provide analgesia adequate to support activities of daily living, not attempting to achieve a specific pain score on the 0-10 Visual Analog Scale. The current opiate medications are providing sufficient analgesia to allow the patient to participate in activities of daily living. The patient is not exhibiting any aberrant behavior suggestive of drug diversion. The patient is not having any adverse reactions to medications. The patient is not suffering from daytime somnolence or mental acuity changes. The patient is managing opiate-induced constipation with appropriate erqm-rdc-alpkyey agents and dietary considerations. The patient was counseled on concern for caution with operating a motor vehicle while using opiate medications. A physical exam was performed and the patient's functional status was evaluated. All patients with back pain were advised against the bed rest greater than 4 days and were advised to return to normal activities. Pain score assessment was noted and the treatment plan was reviewed with the patient. All current medications, both prescribed and OTC were reviewed and reconciled on the electronic medical record. Tobacco screening was accomplished and smoking cessation was advised when indicated. BMI was noted and diet/exercise modification was recommended for all patients following outside normal parameters. I reviewed with the patient today their responsibilities to safeguard prescription medications, reviewed their responsibility to utilize medications only as prescribed by the physician. They are to seek and receive pain medications only from 1 physician group ( [facility]). They are to use 1 pharmacy and keep the clinic informed if they change pharmacies. Their [facility] [address] [place] [address] PAIN MANAGEMENT CONSULTATION Name: JOHNATHAN ANTON Room #: REG [facility] Meenu#: [id number] Admission: 12/08/19 Attend Phys: Macrina BERENICE Wong Discharge: Date of : 82 Report #: [id number] responsibilities include making followup visits in a timely fashion and to avoid abrupt discontinuation of medication usage. Their responsibilities further include bringing their medications (bottles from the pharmacy with residual pills) to the visit for possible confirmation of pill counts and the patient understands it is their responsibility to submit to random drug screens to ensure both that the medications prescribed are present, and that no other controlled substances are present. All prescriptions provided today were generated electronically. PLAN: 1. We discussed treatment options with the patient today. The patient states that her pain is increasing due to more activity required of her during her working hours. I did discuss a possible lumbar epidural steroid injection. She had had these in the past and found them beneficial. It had been a couple of years since her last injection. I encouraged her to think about having this procedure done by Dr. Bettencourt and see if that will help decrease some of her feeling of increasing pain, especially in her left lower extremity. 2. We will continue her on her hydrocodone 5/325 three tablets a day. Scripts will be written for today and 4 weeks supply. 3. Valium 5 mg, #90 t.i.d. The patient cautioned against taking her opioids and benzodiazepines at the same time. The patient states she uses this for muscle relaxant. We encouraged her to use heat and ice as well. 4. I explained to the patient if she is going to have a lumbar epidural steroid injection to make sure she spaces her injection out with when she is scheduled to have her flu vaccination at work. The patient is seen today in collaboration with Dr. Сергей Bettencourt. The patient will return as needed for an injection or within 2 months for medication. <ELECTRONICALLY SIGNED> By: Macrina Wong 12/09/19 [id number] Macrina Wong /nt
== END ==
LOC: PAIN 06:40
PROVIDERS: ATTEND Clinical Nurse Specialist Adult Health
DX: M54.16 Radiculopathy, lumbar region (principal); M79.662 Pain in left lower leg; G89.29 Other chronic pain; F11.20 Opioid dependence, uncomplicated; Z88.8 Allergy status to other drugs, medicaments and biological substances; Z79.899 Other long term (current) drug therapy

== ENCOUNTER → 2020-02-09 | Outpatient (CLI) | payer OTHER ==
--- NOTE | 2020-02-14 07:35 | HPC ---
[facility] [address] [place] [address] PAIN MANAGEMENT CONSULTATION Name: JOHNATHAN ANTON Room #: REG [facility].#: [id number] Admission: 02/09/20 Attend Phys: Macrina Wong Discharge: Date of : 82 Report #: [id number] THIS REPORT FOR: cc: Anand Parikh Andrea RNP Hocker,Macrina NG ~ CC: Macrina Bettencourt MD DATE OF SERVICE: 02/09/2020 This is a telemedicine appointment speaking with the patient from 9:55-10:12 due to her COVID positive result and homesick as she has consented to this Telemed appointment. CHIEF COMPLAINT: Low back pain, left calf pain. HISTORY OF PRESENT ILLNESS: This is a 39-year-old female who I am speaking via the telephone today for her telemedicine appointment due to her positive test for COVID. Today, she is reporting her pain a 15 because of COVID. She explains that she has all over body aches and pains. It feels like deep bone pain. She reports she has a headache that is constant and will not go away. She feels like she is unable to breathe, though she has a runny nose and she feels that her throat is raspy though it is not sore. She has not lost her sense of taste or smell and is not running a fever. The patient has normal pain that she experiences in her left calf and lower back. She is rating it an 8/10 today. She feels normally the medications are very beneficial in controlling this, though at this time her pain is quite elevated due to the fact of COVID, but also that she has been out of her hydrocodone for 2 days, which is appropriate for her fills, but she was unable to get an appointment due to her illness and then was decided to do a telemedicine appointment. She denies any problems with constipation or daytime somnolence as a result of her opioid medications as well as her adjunct therapy that she does take that finds beneficial. She is needing refills of all of her medicines today. ALLERGIES: TRAMADOL. CURRENT LIST OF MEDICATIONS: Hydrocodone 5/325 p.r.n., diazepam 5 mg p.r.n., meloxicam, gabapentin, amitriptyline, probiotic, senna, Citracal, iron, Tylenol Extra Strength. PQRS: 1. She has arthritic changes in her lumbar spine. She denies any rheumatoid arthritis. [address] [address] PAIN MANAGEMENT CONSULTATION Name: JOHNATHAN ANTON [id number] Admission: 02/09/20 Attend Phys: Macrina Wong Discharge: Date of : 82 Report #: [id number] 2. Height, weight and vital signs are deferred due to a telemedicine appointment. 3. Pain score is 8-15/10 today. 4. Her fall risk, she denies dizziness, does not need assistance with walking and has not fallen in the last 2 months. 5. Opioid therapy is greater than 6 weeks; therefore, an opioid signed contract is on the chart. Risk assessment is low. Functional assessment is 27/70. 6. Recreational drug use, she denies. She is a current smoker of half a pack of cigarettes a day and denies any alcohol use. According to the prescription monitoring system, she has past due to fill her medications today. She does report being out for 2 days, which could be part of the reason why her pain is so still elevated today. Her morphine milliequivalent is 15 MME's. We will check a random drug screen on her at her next visit as it was scheduled for today. PHYSICAL EXAMINATION: Deferred. This is a review of systems. The patient is alert and oriented, answering all my questions appropriately. Does complain of deep bone pain throughout her body and an extreme headache in the frontal part of her head. She does complain of a sore throat pain in her lower back that radiates down her left leg as well. ASSESSMENT: 1. Lumbar radiculopathy at L5 minimally invasive diskectomy. 2. Chronic back pain. 3. Opioid medication management under terms of written agreement. 4. COVID virus with positive results. We reviewed the fact that opiate medications are being used to provide analgesia adequate to support activities of daily living, not attempting to achieve a specific pain score on the 0-10 Visual Analog Scale. The current opiate medications are providing sufficient analgesia to allow the patient to participate in activities of daily living. The patient is not exhibiting any aberrant behavior suggestive of drug diversion. The patient is not having any adverse reactions to medications. The patient is not suffering from daytime somnolence or mental acuity changes. The patient is managing opiate-induced constipation with appropriate dkef-wzu-gptqykj agents and dietary considerations. The patient was counseled on concern for caution with operating a motor vehicle while using opiate medications. PLAN: 1. We discussed treatment options with the patient today. Significant time was talked about her COVID diagnosis how she is feeling and the recovery of this for her in returning to work. She does have a son that lives with her who currently has not tested positive and is not showing any symptoms. We did discuss convalescent plasma after she has recovered as a way for her to give back and [address] [address] PAIN MANAGEMENT CONSULTATION Name: JOHNATHAN ANTON Room #: REG [facility]#: [id number] Admission: 02/09/20 Attend Phys: Macrina Wong Discharge: Date of : 82 Report #: [id number] make some money. 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 She was thankful to her about this option and is going to look into it in the future. 2. 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 3. We will have Dr. Primo Bettencourt send her hydrocodone 5/325, #90, for today and 4-week supply as well as Valium 5 mg, #90 with one additional refill. These will be sent electronically. 4. I will send her meloxicam 15 mg, #30 with 5 refills; gabapentin 300 mg, #120 with 5 refills and amitriptyline 75 mg #30 with 5 additional refills. 5. The patient will return in 2 months. At that time, we will collect a random drug screen. Again, the patient consented to this Telemed appointment that Dr. Bettencourt collaborated on. <ELECTRONICALLY SIGNED> By: Macrina Wong 02/14/20 [id number] Macrina Wong /nt
== END ==
LOC: TELEPC 06:42 → PAIN 12:11
PROVIDERS: ATTEND Clinical Nurse Specialist Adult Health
DX: M54.5 Low back pain (principal); M79.662 Pain in left lower leg; M54.16 Radiculopathy, lumbar region; G89.29 Other chronic pain; F11.20 Opioid dependence, uncomplicated; U07.1 COVID-19

== ENCOUNTER → 2020-04-07 | Outpatient (CLI) | payer OTHER ==
[~2020-04-07] VITALS: Ht 152.4 cm; Wt 86.9 kg
[2020-04-07 08:47] VITALS: BP 125/84
--- NOTE | 2020-04-07 09:01 | NUR ---
Pain Clinic Assessment: 1. History of Osteoarthritis: JOINT PAIN History of Rheumatoid Arthritis: DENIES 2. Height: 5 ft. 0 in. 152.4 cm. Weight: 191.6 lb. oz. 86.909 kg. Patient's BMI: 37.4 3. Vital Signs: BP: 125/84 Pulse: 99 Resp: 14 Temp: 02 Sat: 100 ECG Mon: 4. Pain Intensity: 10 5. Fall Risk: Dizziness: N Needs help standing or walking: N Fallen in the last 3 months: N Fall risk comments: 6. Patient on Blood Thinner: None 7. History of Hypertension: N 8. Opioid Therapy greater than 6 weeks: Y Opiate Contract Signed: 08/21/18 9. Risk Assessment Tool Provided: LOW-1 10. Functional Assessment Tool: 11. Recreational Drug Use: Never Drug Type: Tobacco Use: Current Every Day Smoker Tobacco Type: Cigarettes Amount or Packs/day: How Many Years: Alcohol Use: No Frequency: Quant:
--- NOTE | 2020-04-10 12:49 | HPC ---
[facility] [address] [address] PAIN MANAGEMENT CONSULTATION Name: JOHNATHAN ANTON Elver Room #: REG [facility].#: [id number] Admission: 04/07/20 Attend Phys: Macrina Wong Discharge: Date of : 82 Report #: [id number] THIS REPORT FOR: cc: Anand Parikh Andrea RNP Hocker,Macrina NG ~ DATE OF SERVICE: 04/07/2020 CHIEF COMPLAINT: Low back pain, left calf pain. HISTORY OF PRESENT ILLNESS: This is a 40-year-old female who returns to the pain clinic today for refill of her opioid medications. Today, she is reporting a pain score of 10/10 due to the cold. She reports this does aggravate her pain. Walking too long and standing too long do aggravate her as well. Her pain is most centrally located in her lower back and then radiates into her left calf. The medications are very beneficial as well as utilizing heat and [place] balm. The patient denies any daytime somnolence as a result of her medication and does take eqdx-jng-[id number] medications to help with constipation when problems arise. The patient has recently recovered from the COVID virus. She was sick in January when we performed a TeleMed to discuss her medications. She reports she was quite sick for about 3 weeks, but has fully recovered. 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 ALLERGIES: TRAMADOL. CURRENT LIST OF MEDICATIONS: Amitriptyline 75 mg at bedtime, gabapentin 300 mg q.i.d., meloxicam 15 mg daily, hydrocodone 5/325 t.i.d. p.r.n., Valium 5 mg p.r.n., probiotic, Senokot, calcium, iron. PQRS: 1. She has arthritic changes in her lumbar spine. Denies any rheumatoid arthritis. 2. Height is 5 feet, weight is 191, BMI is 37. Vital signs; 125/84, pulse is 99, respirations 14, oxygen sat is 100, pain score is 10/10. 3. Fall risk. Denies dizziness, does not need help walking or standing, has not fallen in the last 3 months. The patient is not on any blood thinners or medicine for hypertension. Opioid therapy is greater than 6 weeks; therefore, an opioid signed contract is on the chart. Risk assessment is low. Functional assessment is 26/70. 4. Recreational drug use, she denies. She currently smokes cigarettes and does not take alcohol. According to the prescription monitoring system, [place] [address] PAIN MANAGEMENT CONSULTATION Name: JOHNATHAN ANTON Room #: REG [facility]#: [id number] Admission: 04/07/20 Attend Phys: Macrina Wong Discharge: Date of : 82 Report #: [id number] a timely fashion. She is due to fill her hydrocodone today. Morphine mEq is 15 MMEs per day. She does take a benzodiazepine that is closely monitored by our clinic as well. PHYSICAL EXAMINATION: GENERAL: This is alert and orientated, obese 40-year-old who appears her stated age, placing her current pain score at 10/10. She is well developed and well nourished. She is a good historian. HEENT: Normocephalic, atraumatic. Extraocular eye muscles are intact. Sclerae are nonintrinsic. She is wearing a mask. NECK: Without adenopathy or JVD. EXTREMITIES: Upper extremity strength judged to be symmetrical at 5/5 with good sensation from L1 to S2. She is without significant scoliosis, kyphosis or lordosis. Tenderness in her lumbar spine that radiates into her left leg following the L5-S1 dermatomal distribution with tenderness especially in her left calf. IMPRESSION: 1. Lumbar radiculopathy at the L5-S1. 2. Previous minimally invasive microdiscectomy. 3. Chronic back pain. 4. Opioid dependency under written agreement. 5. Recent recovery from COVID-19. PLAN: 1. We discussed treatment options with the patient today. We will continue her on her current regimen of hydrocodone 5/325 up to 3 tablets a day. These will be sent electronically by Dr. Bettencourt. She does feel that this medication allows her to be as active as she is able with her activities of daily living and her job, which is very physically demanding with very minimal side effects. 2. We will continue her on her Valium 5 mg, the patient takes this as a muscle relaxant as needed as well as utilizing heat and ice. 3. We did discuss the COVID vaccine. The patient has recently recovered from COVID. 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 I did explain that at 30 days post-COVID, she is eligible for the vaccination. We did also discuss getting convalescent plasma and the patient may look into that as well. 4. The patient is seen in collaboration with Dr. Bettencourt today. She will return in 2 months. <ELECTRONICALLY SIGNED> By: Macrina Wong 04/10/20 [id number] [id number] Macrina Wong /kenzie
== END ==
LOC: PAIN 06:51
PROVIDERS: ATTEND Clinical Nurse Specialist Adult Health
DX: M54.17 Radiculopathy, lumbosacral region (principal); G89.29 Other chronic pain; Z79.891 Long term (current) use of opiate analgesic; Z86.16 Personal history of COVID-19